=== PATIENT | male | born 1980 | race Two or more races ===

== ENCOUNTER → 2016-04-17 | Outpatient (CLI) | payer BC ==
--- NOTE | 2016-04-17 17:32 | PN ---
DATE OF SERVICE: 04/17/2016 This patient is a 35-year-old gentleman who has been followed in the sleep center for treatment of obstructive sleep apnea/hypopnea syndrome. We discussed the results of his diagnostic sleep study and CPAP titration with the patient in detail. At present he has a CPAP unit. I checked his CPAP machine. Pressure is 10.5 cm of water. Patient is using equipment 27 out of 30 nights, but only 13 nights for more than 4 hours, although average usage is 4.2 hours. Subsequently that means that he most of the night is using the machine very close to 4 hours. Sometimes patient takes the mask off during the night and does not feel very comfortable with that. But for several nights when he was able to sleep through the whole night with the machine, he felt better during the night and during the day. Leak from the mask is 13 L/minute, which is acceptable. Apnea-hypopnea index reading from the machine is only 1.2, which indicates that the machine works well and does normalize the patient's breathing. Sometimes patient has difficulties initiating sleep and difficulties in re-initiating sleep again after awakenings in the middle of the night. MEDICATIONS: Ativan, ranitidine. PHYSICAL EXAMINATION: Patient in no distress. VITAL SIGNS: BP 130/72, HR 82, RR 16. Weight 236, temperature 98.3. Oxygen saturation at room air 97%. HEENT: PERRLA, EOMI. LUNGS: Clear. HEART: S1, S2 regular. ABDOMEN: Soft, nontender. EXTREMITIES: No edema. IMPRESSION: 1. Obstructive sleep apnea/hypopnea syndrome, in mild range, controlled with CPAP at 10.5 cm of water. 2. Patient has some difficulties with the mask. 3. Patient has insomnia with difficulties initiating sleep. 4. History of social phobia. 5. Acid reflux. 6. Restriction of nasal breathing. PLAN: 1. I discussed with the patient stimulus control, paradoxical intention. Patient also uses worry time and not looking at the clock at night. 2. Sleep hygiene with regular time in bed for at least 7-1/2 hours. 3. No driving if feeling any sleepiness. 4. Prescription for all necessary CPAP supplies. Thank you very much for allowing me to participate in the management your patient. Sincerely, Osman Saucedo MD, PhD, FAASM. Diplomat of [place] [employer], Sleep Medicine Board by [place] [employer], [place] [employer]
== END | disposition home or self-care (01) ==

== ENCOUNTER → 2018-10-27 | Outpatient (CLI) | payer BC ==
[2018-10-27 12:40] LABS: Basophils % (A) 1 %; Eosinophils # (A) 0.1 k/uL (0-0.7); Eosinophils % (A) 3 %; HCT 41.1 % (39.0-53.0); HGB 13.9 gm/dL (13.0-17.5); Lymphocytes # (A) 1.4 k/uL (1.0-4.8); Lymphocytes % (A) 31 %; MCH 31.7 pg (25.0-35.0); MCHC 33.8 g/dL (31.0-37.0); Mean Platelet Volume 7.3; Monocytes # (A) 0.3 k/uL (0-1.0); Monocytes % (A) 7 %; Neutrophils # (A) 2.4 k/uL (1.3-7.7); Neutrophils % (A) 55 %; Platelet Count 175 k/uL (150-450); RBC 4.37 m/uL (4.30-5.90); RDW 14.7 % (11.5-15.5); WBC 4.3 k/uL (3.8-10.6)
== END | disposition home or self-care (01) ==
LOC: LABPAT 11:39
PROVIDERS: ATTEND Orthopaedic Surgery
DX: Z01.812 Encounter for preprocedural laboratory examination (principal); G56.03 Carpal tunnel syndrome, bilateral upper limbs
CPT/HCPCS: 36415; 80051; 85025

== ENCOUNTER 2018-11-05 08:57 | Day surgery (SDC) | payer BC ==
[2018-11-01 14:26] VITALS: BMI 25.7
--- NOTE | 2018-11-04 20:27 | HP ---
HISTORY AND PHYSICAL CHIEF COMPLAINT: Left hand pain and numbness. 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 He is having a difficult time with gripping and grasping. He notes numbness along with pain. He is having night symptoms. PAST MEDICAL HISTORY: Negative. CURRENT MEDICATIONS: None. ALLERGIES: HE DENIES DRUG ALLERGIES. FAMILY HISTORY: Significant for cancer. SOCIAL HISTORY: Significant for social alcohol use. REVIEW OF SYSTEMS: Sixteen-point review of systems otherwise reviewed and is noncontributory. PHYSICAL EXAMINATION: He is approximately 5 feet 11 inches tall, 188 pounds of mesomorphic habitus. HEENT exam is nonfocal. Neck is supple. He is nontender about the left shoulder and elbow. On examination of his left wrist, he has a positive Tinel's over the carpal canal. Abductor pollicis brevis strength is 5 minus over 5. There is overall significant thenar atrophy. EMG report from 10/19/2018 shows evidence of moderate left carpal tunnel syndrome. IMPRESSION: Left carpal tunnel syndrome, symptomatic. RECOMMENDATIONS: I talked to the patient at length regarding his condition along with treatment options. At this point he is quite symptomatic and opts to proceed with surgery. We will plan to proceed with left carpal tunnel release utilizing local anesthetic and IV sedation. MMARIADNEL / IJN: [id number] /
--- NOTE | 2018-11-04 21:27 | HP ---
HISTORY AND PHYSICAL CHIEF COMPLAINT: Right hand pain and numbness. 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 It has worsened recently. He has had a difficult time with gripping and grasping. He notes significant night symptoms. He has tried medications and bracing. PAST MEDICAL HISTORY: Negative. CURRENT MEDICATIONS: None. He denies drug allergies. FAMILY HISTORY: Significant for cancer. SOCIAL HISTORY: Significant for social alcohol use. REVIEW OF SYSTEMS: Sixteen point review of systems otherwise reviewed and is noncontributory. PHYSICAL EXAMINATION: On examination, the patient is approximately 5 foot 11, 188 pounds of mesomorphic habitus. HEENT exam is nonfocal. Neck is supple. He is nontender about the right shoulder and elbow. On examination of the right wrist, he has a positive Tinel's over the carpal canal. Abductor pollicis brevis strength is 4/5. He has no real thenar wasting. Light touch is grossly intact throughout the right digits. EMG report 10/19/2018 showed moderate bilateral carpal tunnel syndrome. IMPRESSION: Right carpal tunnel syndrome, symptomatic. RECOMMENDATIONS: I talked to the patient at length regarding his condition along with treatment options. At this point, he notes he is quite limited because of pain, numbness, and weakness. After thorough discussion he opts to proceed with surgery. We are going to proceed with right carpal tunnel release utilizing local anesthetic and IV sedation. We will likely perform that as an outpatient procedure. Risks and benefits were discussed at length in layman's terms. MMODL / IJN: [id number] /
[~2018-11-05 08:57] MED LIST: DEXAMETHASONE SOD PHOSPHATE 10 MG/ML 1 ML VIAL IV ONE; HYDROmorphone 0.5 MG/0.5 ML SYRINGE IVP PRN; LACTATED RINGERS 1,000 ML IV SCH; ONDANSETRON 4 MG/2 ML VIAL IVP ONE
[2018-11-05 09:12] VITALS: TEMP 97.7
[2018-11-05] MEDS ORDERED: LIDOCAINE 1% 20 ML VIAL (10MG/ML) FOR IV START INTRADERMA ONE (09:18)
[2018-11-05] MEDS ORDERED: fentaNYL (PF) 50 MCG/ML 2 ML AMP ONE (10:24)
[2018-11-05] MEDS ORDERED: PROPOFOL 10 MG/ML 20 ML VIAL IV ONE (10:24)
[2018-11-05] MEDS ORDERED: MIDAZOLAM 2 MG/2 ML VIAL ONE (10:24)
[2018-11-05] MEDS ORDERED: LIDOCAINE 1% INJ 10MG/ML (20 ML MDV) ONE (10:24)
[2018-11-05] MEDS ORDERED: BUPIVACAINE (PF) 0.25% 30 ML VIAL SQ ONE (10:28)
--- NOTE | 2018-11-05 10:56 | P.OP ---
Date of Procedure: 11/05/18 Preoperative Diagnosis: Right carpal tunnel syndromesymptomatic Postoperative Diagnosis: Same Procedure(s) Performed: Right carpal tunnel release Anesthesia: MAC, local Surgeon: Solomon Franco Estimated Blood Loss (ml): 2 Pathology: none sent Condition: stable Disposition: PACU Indications for Procedure: The patient's a 38-year-old [id number]-ikdpegov gentleman who presents with progressive right hand pain and numbness secondary to carpal tunnel syndrome despite conservative measures. A discussion of the risks and benefits of operative intervention versus continued conservative measures was made with patient. He opted to proceed with surgery. Operative risks to include infection, neurovascular injury, development of blood clots, possible incomplete resolution of symptoms, possible recurrence of symptoms and need for subsequent procedures was discussed. Informed consent was obtained. Operative Findings: As below Description of Procedure: The patient was brought to the operating room, and after induction of IV sedation the right upper extremity was prepped and draped in normal fashion. The proposed incision site was outlined skin marker in line with the radial aspect the fourth ray extending from the volar wrist crease distally 2-1/2 cm. One quarter percent plain Marcaine was injected into the proposed incision site. 9 mL was utilized. The tourniquet was inflated to 250 mmHg. The skin incision was then made. The skin was incised sharply. Subcutaneous tissues were divided sharply the superficial palmar fascia was identified and split in line with the skin incision. The transverse carpal ligament was identified and transected under direct visualization distally to level the palmar fat pad. Proximal was taken level of the volar wrist crease. A plane above and below the transverse carpal ligament was then bluntly developed with tenotomies. The confluence of the distal forearm fascia and the transverse carpal ligament was then transected under direct visualization proximally with the tines pointed in the ulnar direction. I felt this was adequate proximal release. Neural lysis was not performed. The wound was irrigated with normal saline. Electrocautery was used for hemostasis. The skin was reapproximated with simple 3-0 nylon sutures. A sterile dressing was applied. The tourniquet was deflated with less than 15 minutes total tourniquet time. Patient was awoken from sedation and transferred to the recovery room in good condition. Blood loss was estimated 2 mL. No complications were incurred. Sponge and needle counts were correct at the end the case.
[2018-11-05 11:33] VITALS: BP 114/64; PULSE 66; RESP 16
== END 2018-11-05 11:57 | disposition home or self-care (01) ==
LOC: OR 08:57
PROVIDERS: ATTEND Orthopaedic Surgery
DX: G56.01 Carpal tunnel syndrome, right upper limb (principal); K21.9 Gastro-esophageal reflux disease without esophagitis; Z79.899 Other long term (current) drug therapy; Z80.9 Family history of malignant neoplasm, unspecified
CPT/HCPCS: 64721; J2250; J1100; J0690; J2405; J2001; J3010; J2704

== ENCOUNTER 2018-11-26 08:46 | Day surgery (SDC) | payer BC ==
[2018-11-22 12:31] VITALS: BMI 25.7
--- NOTE | 2018-11-25 09:58 | HP ---
HISTORY AND PHYSICAL CHIEF COMPLAINT: Left hand pain and numbness. 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 It has worsened recently. He is having symptoms at night. He notes weakness and numbness. PAST MEDICAL HISTORY: Negative. PAST SURGICAL HISTORY: Significant for recent right carpal tunnel release. CURRENT MEDICATIONS: None. ALLERGIES: He denies drug allergies. FAMILY HISTORY: Significant for cancer. SOCIAL HISTORY: Significant for social alcohol use. REVIEW OF SYSTEMS: Sixteen-point review of systems otherwise reviewed and is noncontributory. PHYSICAL EXAMINATION: On examination, the patient is well-developed, well-nourished male approximately 5 feet 11 inches, 188 pounds of mesomorphic habitus. HEENT exam is nonfocal. Neck is supple. He is nontender about the left shoulder and elbow. On examination of his left wrist, he has a positive Tinel's over the carpal canal. Light touch appears grossly intact. Abductor pollicis brevis strength 5- over 5. There is no real thenar wasting. EMG report of left upper extremity 10/19/2018 by report shows moderate carpal tunnel syndrome. IMPRESSION: Left carpal tunnel syndrome-symptomatic. RECOMMENDATIONS: I talked to the patient at length regarding his condition and treatment options. At this point, he is quite symptomatic despite conservative measures and opts to proceed with surgery. We will plan to proceed with left carpal tunnel release utilizing local anesthetic and IV sedation. We will likely perform that as an outpatient procedure. MMODL / IJN: [id number] /
[~2018-11-26 08:46] MED LIST changes: +LIDOCAINE 1% 20 ML VIAL (10MG/ML) FOR IV START INTRADERMA PRN; +MIDAZOLAM 2 MG/2 ML VIAL IV PRN; +SCOPOLAMINE 1.5MG/72HR PATCH TRANSDERM ONE
[2018-11-26 09:22] VITALS: TEMP 98.3
[2018-11-26] MEDS: LACTATED RINGERS 1,000 ML IV ONE ×2 (09:30→10:02)
[2018-11-26] MEDS ORDERED: fentaNYL (PF) 50 MCG/ML 2 ML AMP ONE (10:00)
[2018-11-26] MEDS ORDERED: MIDAZOLAM 2 MG/2 ML VIAL ONE (10:00)
[2018-11-26] MEDS ORDERED: PROPOFOL 10 MG/ML 20 ML VIAL IV ONE (10:00)
[2018-11-26] MEDS ORDERED: LIDOCAINE 1% INJ 10MG/ML (20 ML MDV) ONE (10:00)
[2018-11-26] MEDS ORDERED: BUPIVACAINE (PF) 0.25% 30 ML VIAL SQ ONE (10:02)
--- NOTE | 2018-11-26 10:33 | P.OP ---
Date of Procedure: 11/26/18 Preoperative Diagnosis: Left carpal tunnel syndromesymptomatic Postoperative Diagnosis: Same Procedure(s) Performed: Left carpal tunnel release Anesthesia: MAC, local Surgeon: Solomon Franco Estimated Blood Loss (ml): 2 Pathology: none sent Condition: stable Disposition: PACU Indications for Procedure: The patient's a 38-year-old male who presents with progressive left hand pain and numbness secondary carpal tunnel syndrome despite conservative measures. A discussion of the risks and benefits of operative intervention versus continued conservative measures was made with patient. He opted to proceed with surgery. Operative risks to include infection, neurovascular injury, development of blood clots, possible incomplete resolution of symptoms, possible recurrence of symptoms and need for subsequent procedures was discussed. Informed consent was obtained. Operative Findings: As below Description of Procedure: The patient was brought to the operating room, and after induction of IV sedation the left upper extremity was prepped and draped in normal fashion. The proposed incision site was outlined skin marker in line with the radial aspect the fourth ray extending from the volar wrist crease distally 2-1/2 cm. One quarter percent plain Marcaine was injected into the proposed incision site. 9 mL was utilized. The tourniquet was inflated to 250 mmHg. The skin incision was then made. The skin was incised sharply. Subcutaneous tissues were divided sharply the superficial palmar fascia was identified and split in line with the skin incision. The transverse carpal ligament was identified and transected under direct visualization distally to level the palmar fat pad. Proximal was taken level of the volar wrist crease. A plane above and below the transverse carpal ligament was then bluntly developed with tenotomies. The confluence of the distal forearm fascia and the transverse carpal ligament was then transected under direct visualization proximally with the tines pointed in the ulnar direction. I felt this was adequate proximal release. Neural lysis was not performed. The wound was irrigated with normal saline. Electrocautery was used for hemostasis. The skin was reapproximated with simple 3-0 nylon sutures. A sterile dressing was applied. The tourniquet was deflated with less than 15 minutes total tourniquet time. Patient was awoken from sedation and transferred to the recovery room in good condition. Blood loss was estimated 1 mL. No complications were incurred. Sponge and needle counts were correct at the end the case.
[2018-11-26 10:59] VITALS: BP 132/75; PULSE 70; RESP 18
== END 2018-11-26 11:20 | disposition home or self-care (01) ==
LOC: OR 08:46
PROVIDERS: ATTEND Orthopaedic Surgery
DX: G56.02 Carpal tunnel syndrome, left upper limb (principal); Z80.9 Family history of malignant neoplasm, unspecified
CPT/HCPCS: 64721; J2250; J1100; J0690; J2405; J2001; J3010; J2704

== ENCOUNTER 2019-12-09 00:48 | Emergency (ER) | payer BC ==
[2019-12-09 00:59] VITALS: BP 131/83; PULSE 80; RESP 18; TEMP 97.9
--- NOTE | 2019-12-09 01:18 | ED ---
General Adult HPI - General Chief complaint: ENT Stated complaint: ENT Time Seen by Provider: 12/09/19 01:00 Source: patient, RN notes reviewed Mode of arrival: ambulatory Limitations: no limitations - History of Present Illness Initial comments: 39-year-old male presents to the emergency room for a chief complaint of bug in right ear. Patient reports he was outside when he suddenly felt a bug fly into his right ear. States he could feel it moving around. Patient reports that he killed it with mineral oil. He then attempted to flush his ear several times to dislodge the insect however was unsuccessful. Patient then presented to the emergency room. He denies any pain in the right ear at this time.Patient has no other complaints at this time including shortness of breath, chest pain, abdominal pain, nausea or vomiting, headache, or visual changes. - Related Data Home Medications Medication Instructions Recorded Confirmed Calcium Carbonate [Tums] 500 mg PO DIRECTED PRN 11/01/18 11/26/18 Multivitamins, Thera [Multivitamin 1 tab PO DAILY 11/01/18 11/26/18 (formulary)] Ranitidine HCl [Zantac] 150 mg PO BID PRN 11/01/18 11/26/18 Allergies Allergy/AdvReac Type Severity Reaction Status Date / Time No Known Allergies Allergy Verified 12/09/19 00:58 Review of Systems ROS Statement: Those systems with pertinent positive or pertinent negative responses have been documented in the HPI. ROS Other: All systems not noted in ROS Statement are negative. Past Medical History Past Medical History: No Reported History History of Any Multi-Drug Resistant Organisms: None Reported Past Surgical History: Orthopedic Surgery Past Psychological History: No Psychological Hx Reported Smoking Status: Never smoker Past Alcohol Use History: Rare Past Drug Use History: None Reported General Exam Limitations: no limitations General appearance: alert, in no apparent distress Head exam: Present: atraumatic, normocephalic, normal inspection Eye exam: Present: normal appearance, PERRL, EOMI. Absent: scleral icterus, conjunctival injection ENT exam: Present: TM's normal bilaterally, other (Patient does have a large insect noted in the right external auditory canal.). Absent: normal exam Neck exam: Present: normal inspection, full ROM. Absent: tenderness, meningismus Respiratory exam: Present: normal lung sounds bilaterally. Absent: respiratory distress, wheezes, rales, rhonchi, stridor Cardiovascular Exam: Present: regular rate, normal rhythm, normal heart sounds. Absent: systolic murmur, diastolic murmur, rubs, gallop, clicks Course Vital Signs 12/09/19 00:57 Temperature 97.9 F Pulse Rate 80 Respiratory 18 Rate Blood Pressure 131/83 O2 Sat by Pulse 99 Oximetry Procedures - Foreign Body Removal Ear Location: ear canal (R) Foreign Body Suspected: insect If Insect Suspected: ear canal inspected; intact TM, insect seen Foreign Body Removed: yes Foreign Body Removal Technique: forceps Tympanic Membrane Intact: Yes Patient Tolerated Procedure: well, no complications Complications: none Medical Decision Making - Medical Decision Making Insect was removed from external auditory canal followed by 2 separate detached legs. Tympanic membrane does appear intact after removal. Patient will return for any signs of infection. Disposition Clinical Impression: Ear foreign body Disposition: HOME SELF-CARE Condition: Good Instructions (If sedation given, give patient instructions): Ear Foreign Body (ED) Additional Instructions: If you have any worsening symptoms such as fevers or drainage from the ear return to the emergency room. Is patient prescribed a controlled substance at d/c from ED?: No Referrals: Maryann Bullard MD [REFERRING] - 1-2 days Time of Disposition: 01:18
== END 2019-12-09 01:28 | disposition home or self-care (01) ==
LOC: EC 00:48
DX: T16.1XXA Foreign body in right ear, initial encounter (principal); X58.XXXA Exposure to other specified factors, initial encounter
CPT/HCPCS: 69200; 99282

== ENCOUNTER 2020-07-04 14:33 | Emergency (ER) | payer BC ==
[2020-07-04 14:40] VITALS: RESP 18; TEMP 98.3
--- NOTE | 2020-07-04 15:49 | CT ---
EXAMINATION TYPE: CT brain cspine wo con DATE OF EXAM: 07/04/2020 COMPARISON: None HISTORY: head trauma from falling lockers 6 weeks ago, continuous headache, dizziness, neck pain sinc e incident CT DLP: 1404.[address] Brain: Unenhanced CT of the brain was performed. Large area of vasogenic edema noted within the left frontal lobe. Suspect underlying mass. MRI of the brain is recommended. There is midline shift from left to right of 1.5 cm. There is subfalcine herni ation. No additional areas of abnormal attenuation are seen. No evidence for intracranial hemorrhage. Bony calvarium is intact. If symptoms persist consider MRI. Osseous calvarium is intact. He. He IMPRESSION: 1.Large area of vasogenic edema left frontal lobe. I suspect underlying mass 2. left to right shift with subfalcine herniation. CT Cervical Spine: Unenhanced CT of the cervical spine was performed with bone and soft tissue window settings submitted . Coronal and sagittal reconstruction is obtained. There is normal alignment and prevertebral soft tissues. I do not see evidence for fracture or sublu xation. No significant degenerative changes are present. The lung apices are clear. IMPRESSION: No evidence for acute fracture or subluxation of the cervical spine. ER Notified via telephone at the time of exam completion of the aforementioned findings.
[2020-07-04] MEDS ORDERED: DEXAMETHASONE SOD PHOSPHATE 10 MG/ML 1 ML VIAL IV STA (15:59)
[2020-07-04 16:10] VITALS: BP 136/75; PULSE 63
--- NOTE | 2020-07-04 16:13 | ED ---
Headache HPI - General Chief Complaint: Headache Stated Complaint: Headache Time Seen by Provider: 07/04/20 14:50 Mode of arrival: ambulatory Limitations: no limitations - History of Present Illness Initial Comments: The patient is a 39-year-old male, previously healthy, who presents the emergency room with reported headache and visual changes for the past 8 weeks. The patient reports that he was in his barn building lockers when he was mcfp up a ladder and fell off. Reports that he fell backwards and hit the left side of his head. He was not unconscious for an unknown period of time. He reports that when he woke up he was having a headache. He has had persistent delay in his speech and some aphasia. He followed up with his primary care doctor approximate 2 weeks after his symptoms. Primary care doctor placed him on 10 days for the prednisone. He did report that his symptoms improved somewhat however they have now gotten progressively worse. Reports to a moderate headache at daily. He has been taking Motrin and Tylenol however headache never goes away. He has an MRI scheduled for July 21 however due to the continuation and worsening of his symptoms he came into the emergency room today. States that his left side feels weaker. Denies any difficulties with ambulation. Reports to visual changes in his left eye. No fevers or chills. Denies any neck pain. No other alleviating, precipitating or modifying factors - Related Data Home Medications Medication Instructions Recorded Confirmed Dextroamphetamine/Amphetamine 15 mg PO DAILY 07/04/20 07/04/20 [Adderall] Lisdexamfetamine Dimesylate 70 mg PO DAILY 07/04/20 07/04/20 [Vyvanse] Meclizine [Antivert] 12.5 mg PO Q6H PRN 07/04/20 07/04/20 Zantac 75mg 75 mg PO DAILY 07/04/20 07/04/20 Allergies Allergy/AdvReac Type Severity Reaction Status Date / Time No Known Allergies Allergy Verified 07/04/20 15:40 Review of Systems ROS Statement: Those systems with pertinent positive or pertinent negative responses have been documented in the HPI. ROS Other: All systems not noted in ROS Statement are negative. Past Medical History Past Medical History: No Reported History History of Any Multi-Drug Resistant Organisms: None Reported Past Surgical History: Orthopedic Surgery Additional Past Surgical History / Comment(s): lt hand Past Psychological History: No Psychological Hx Reported Smoking Status: Never smoker Past Alcohol Use History: Rare Past Drug Use History: None Reported General Exam Limitations: no limitations General appearance: alert, in no apparent distress Head exam: Present: atraumatic, normocephalic, normal inspection Eye exam: Present: normal appearance, PERRL, EOMI. Absent: scleral icterus, conjunctival injection, periorbital swelling ENT exam: Present: normal exam, mucous membranes moist Neck exam: Present: normal inspection. Absent: tenderness, meningismus, lymphadenopathy Respiratory exam: Present: normal lung sounds bilaterally. Absent: respiratory distress, wheezes, rales, rhonchi, stridor Cardiovascular Exam: Present: regular rate, normal rhythm, normal heart sounds. Absent: systolic murmur, diastolic murmur, rubs, gallop, clicks GI/Abdominal exam: Present: soft, normal bowel sounds. Absent: distended, tenderness, guarding, rebound, rigid Extremities exam: Present: normal inspection, full ROM, normal capillary refill, other (4/5 strength left hand). Absent: tenderness, pedal edema, joint swelling, calf tenderness Back exam: Present: normal inspection Neurological exam: Present: alert, oriented X3, CN II-XII intact, other (delayed speech. No dysarthria. Mild expressive aphasia. ) Psychiatric exam: Present: normal affect, normal mood Skin exam: Present: warm, dry, intact, normal color. Absent: rash Course Vital Signs 07/04/20 07/04/20 14:34 16:10 Temperature 98.3 F Pulse Rate 66 63 Respiratory 18 18 Rate Blood Pressure 138/87 136/75 O2 Sat by Pulse 99 100 Oximetry - Reevaluation(s) Reevaluation #1: Dr. Juan spoke with radiologist regarding read 07/04/20 15:49 Reevaluation #2: Spoke with patient regarding diagnosis 07/04/20 15:55 Reevaluation #3: Spoke with Devin Soliman - no ICU beds 07/04/20 16:03 Spoke with [facility] - awaiting capacity to accept patient 07/04/20 16:08 [facility] - no ICU availability 07/04/20 16:12 [facility]in Santiago - no ICU availability 07/04/20 16:[address] [facility] 07/04/20 16:29 [facility] - no ICU beds 07/04/20 16:36 Reevaluation #4: [facility] accepts patient 07/04/20 16:44 Reevaluation #5: Speaking with Neurosurgery at [facility] - [phone]. No further recs 07/04/20 16:45 Medical Decision Making - Medical Decision Making Upon arrival, the patient is placed in room 6. A thorough history and physical exam is performed. Patient is immediately sent over for CT which demonstrates large area of vasogenic edema of the left frontal lobe. Suspected underlying mass. Left to right shift with subfalcine herniation. No evidence of fracture of the cervical spine. The radiologist does discuss these results with Dr. Juan. I discussed the results with the patient and recommended immediate transfer for MRI. IV was established the patient was given 10 mg Decadron. Labs were drawn. Currently attempting transferred outside facility with neurosurgery capabilities - Lab Data Result diagrams: 07/04/20 16:06 07/04/20 16:06 Lab Results 07/04/20 07/04/20 Range/Units 16:06 16:06 WBC 10.0 (3.8-10.6) k/uL RBC 4.89 (4.30-5.90) m/uL Hgb 15.9 (13.0-17.5) gm/dL Hct 45.0 (39.0-53.0) % MCV 92.0 (80.0-100.0) fL MCH 32.6 (25.0-35.0) pg MCHC 35.5 (31.0-37.0) g/dL RDW 12.8 (11.5-15.5) % Plt Count 182 (150-450) k/uL MPV 7.0 Neutrophils % 84 % Lymphocytes % 10 % Monocytes % 5 % Eosinophils % 1 % Basophils % 0 % Neutrophils # 8.4 H (1.3-7.7) k/uL Lymphocytes # 1.0 (1.0-4.8) k/uL Monocytes # 0.5 (0-1.0) k/uL Eosinophils # 0.1 (0-0.7) k/uL Basophils # 0.0 (0-0.2) k/uL Sodium 137 (137-145) mmol/L Potassium 4.3 (3.5-5.1) mmol/L Chloride 99 (98-107) mmol/L Carbon Dioxide 30 (22-30) mmol/L Anion Gap 8 mmol/L BUN 15 (9-20) mg/dL Creatinine 0.94 (0.66-1.25) mg/dL Est GFR (CKD-EPI)AfAm >90 (>60 ml/min/1.73 sqM) Est GFR (CKD-EPI)NonAf >90 (>60 ml/min/1.73 sqM) Glucose 96 (74-99) mg/dL Calcium 10.0 (8.4-10.2) mg/dL Total Bilirubin 1.2 (0.2-1.3) mg/dL AST 19 (17-59) U/L ALT 19 (4-49) U/L Alkaline Phosphatase 55 (38-126) U/L Total Protein 7.5 (6.3-8.2) g/dL Albumin 4.8 (3.5-5.0) g/dL Disposition Clinical Impression: Fall, Head trauma, Vasogenic edema Disposition: OTHER INSTITUTION NOT DEFINED Condition: Serious Is patient prescribed a controlled substance at d/c from ED?: No Referrals: William Barroso DO [Primary Care Provider] - 1-2 days Time of Disposition: 16:12 - Out of Hospital Transfer - Req. Specs Out of Hospital Transfer - Requested Specifics: Other Emergency Center ([facility])
[2020-07-04 16:17] LABS: Basophils % (A) 0 %; Eosinophils # (A) 0.1 k/uL (0-0.7); Eosinophils % (A) 1 %; HGB 15.9 gm/dL (13.0-17.5); Lymphocytes % (A) 10 %; MCH 32.6 pg (25.0-35.0); MCHC 35.5 g/dL (31.0-37.0); Monocytes # (A) 0.5 k/uL (0-1.0); Monocytes % (A) 5 %; Neutrophils # (A) 8.4 k/uL (1.3-7.7); Neutrophils % (A) 84 %; Platelet Count 182 k/uL (150-450); RBC 4.89 m/uL (4.30-5.90); RDW 12.8 % (11.5-15.5)
[2020-07-04 16:24] LABS: ALT 19 U/L (4-49); AST 19 U/L (17-59); African American GFR (CKD) >90 (>60 ml/min/1.73 sqM); Albumin 4.8 g/dL (3.5-5.0); Alkaline Phosphatase 55 U/L (38-126); Anion Gap 8 mmol/L; Blood Urea Nitrogen 15 mg/dL (9-20); Carbon Dioxide 30 mmol/L (22-30); Chloride 99 mmol/L (98-107); Glucose 96 mg/dL (74-99); Non-African American GFR(CKD) >90 (>60 ml/min/1.73 sqM); Potassium 4.3 mmol/L (3.5-5.1); Sodium 137 mmol/L (137-145); Total Bilirubin 1.2 mg/dL (0.2-1.3); Total Protein 7.5 g/dL (6.3-8.2)
== END 2020-07-04 17:12 | disposition other institution (70) ==
LOC: EC 14:33
DX: S06.1X9A Traumatic cerebral edema with loss of consciousness of unspecified duration, initial encounter (principal); Z20.822 Contact with and (suspected) exposure to COVID-19; W11.XXXA Fall on and from ladder, initial encounter
CPT/HCPCS: 36415; 80053; 85025; 87635; 72125; 70450; 99285; 96374; J1100

== ENCOUNTER 2023-07-11 09:55 | Emergency (ER) | payer BC ==
[2023-07-11] MEDS ORDERED: levETIRAcetam IV 1,500 MG in SODIUM CHLORIDE 0.9% 250 ML IVPB ONE (10:01)
--- NOTE | 2023-07-11 10:03 | ED ---
General Adult HPI - General Chief complaint: Seizure Stated complaint: Seizure Time Seen by Provider: 07/11/23 09:55 Source: patient, EMS, RN notes reviewed, old records reviewed Mode of arrival: EMS Limitations: no limitations - History of Present Illness Initial comments: This is a 43-year-old male who was diagnosed with glioblastoma 3 years ago. Pat ient states he has had a resection years ago. Patient states he has also had multiple CT scans and MRIs the last MRI was 2 months ago and showed no new tumors. Patient does have a WEATHERIZATION SPECIALIST shunt in place. Patient also was on Keppra. Patient states today had a seizure that was the first seizure he had in a year. Patient denies any prodrome or any feeling of being sick in any way prior to the seizure. Patient states since the seizure he has been up and walking around without problem and has no symptoms at this time. Patient denies any headache patient denies numbness weakness. Patient denies any confusion. - Related Data Home Medications Medication Instructions Recorded Confirmed dexAMETHasone 2 mg PO DAILY 07/17/21 07/17/21 Previous Rx's Medication Instructions Recorded levETIRAcetam [Keppra] 750 mg PO Q12HR #60 tab 07/18/21 Allergies Allergy/AdvReac Type Severity Reaction Status Date / Time No Known Allergies Allergy Verified 07/11/23 10:00 Review of Systems ROS Statement: Those systems with pertinent positive or pertinent negative responses have been documented in the HPI. ROS Other: All systems not noted in ROS Statement are negative. 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 brain sx x 5 Past Psychological History: No Psychological Hx Reported Smoking Status: Never smoker Past Alcohol Use History: Rare Past Drug Use History: None Reported General Exam - General Exam Comments Initial Comments: GENERAL: Patient is well-developed and well-nourished. Patient is nontoxic and well- hydrated and is in no acute distress. ENT: Neck is soft and supple. No significant lymphadenopathy is noted. Oropharynx is clear. Moist mucous membranes. Neck has full range of motion without eliciting any pain. [place] for the shunt is fluctuant EYES: The sclera were anicteric and conjunctiva were pink and moist. Extraocular movements were intact and pupils were equal round and reactive to light. Eyelids were unremarkable. PULMONARY: Unlabored respirations. Good breath sounds bilaterally. No audible rales rhonchi or wheezing was noted. CARDIOVASCULAR: There is a regular rate and rhythm without any murmurs gallops or rubs. ABDOMEN: Soft and nontender with normal bowel sounds. SKIN: Skin is clear with no lesions or rashes and otherwise unremarkable. NEUROLOGIC: Patient is alert and oriented x3. Cranial nerves II through XII are grossly intact. Motor and sensory are also intact. Normal speech, volume and content. Symmetrical smile. MUSCULOSKELETAL: Normal extremities with adequate strength and full range of motion. No lower extremity swelling or edema. No calf tenderness. LYMPHATICS: No significant lymphadenopathy is noted PSYCHIATRIC: Normal psychiatric evaluation. Limitations: no limitations Course Vital Signs 07/11/23 09:56 Temperature 98.4 F Pulse Rate 89 Respiratory 16 Rate Blood Pressure 142/100 O2 Sat by Pulse 100 Oximetry Medical Decision Making - Medical Decision Making EKG is interpreted by myself. EKG shows a sinus rhythm at 80 bpm parable 220 QRS is 96 QT interval 364 QTc is 400. Patient's EKG shows no ST segment ovation or depression Was pt. sent in by a medical professional or institution (, PA, GEAR HOBBER, urgent care, hospital, or senior care...) When possible be specific @ -No Did you speak to anyone other than the patient for history (EMS, parent, family, police, friend...)? What history was obtained from this source @ -No Did you review nursing and triage notes (agree or disagree)? Why? @ -I reviewed and agree with nursing and triage notes Were old charts reviewed (outside hosp., previous admission, EMS record, old EKG, old radiological studies, urgent care reports/EKG's, senior care records)? Report findings @ -No old charts were reviewed Differential Diagnosis (chest pain, altered mental status, abdominal pain women, abdominal pain men, vaginal bleeding, weakness, fever, dyspnea, syncope, head ache, dizziness, GI bleed, back pain, seizure, CVA, palpatations, mental health, musculoskeletal)? @ -Differential Seizure: Recurrent seizure disorder, febrile seizure, alcohol withdrawal, stimulants, meningitis, encephalitis, intercranial hemorrhage, intracranial tumor, stroke, eclampsia, thyrotoxicosis, hypocalcemia, hyponatremia, hypernatremia, hypomagnesemia, psychogenic, this is not meant to be an all-inclusive list. EKG interpreted by me (3pts min.). @ -As above X-rays interpreted by me (1pt min.). @ -None done CT interpreted by me (1pt min.). @ -CT of the brain shows no acute abnormality U/S interpreted by me (1pt. min.). @ -None done What testing was considered but not performed or refused? (CT, X-rays, U/S, labs)? Why? @ -None What meds were considered but not given or refused? Why? @ -None Did you discuss the management of the patient with other professionals (professionals i.e. , PA, GEAR HOBBER, lab, RT, psych nurse, medical social worker, airline transport pilot, teacher, ground defence officer, catalytic case operator)? Give summary @ -No Was smoking cessation discussed for >3mins.? @ -No Was critical care preformed (if so, how long)? @ -No Were there social determinants of health that impacted care today? How? (H omelessness, low income, unemployed, alcoholism, drug addiction, transportation, low edu. Level, literacy, decrease access to med. care, mcfp, rehab)? @ -No Was there de-escalation of care discussed even if they declined (Discuss DNR or withdrawal of care, Hospice)? DNR status @ -No What co-morbidities impacted this encounter? (DM, HTN, Smoking, COPD, CAD, Cancer, CVA, ARF, Chemo, Hep., AIDS, mental health diagnosis, sleep apnea, morbid obesity)? @ -None Was patient admitted / discharged? Hospital course, mention meds given and route, prescriptions, significant lab abnormalities, going to OR and other pertinent info. @ -Patient CT showed no acute abnormality. Patient had no symptoms before or after the seizure. Patient was given 1500 mg of Keppra while in the emergency department. Patient states he will follow-up with his physician on Thursday. Undiagnosed new problem with uncertain prognosis? @ -No Drug Therapy requiring intensive monitoring for toxicity (Heparin, Nitro, Insulin, Cardizem)? @ -No Were any procedures done? @ -No Diagnosis/symptom? @ -Seizure Acute, or Chronic, or Acute on Chronic? @ -Acute Uncomplicated (without systemic symptoms) or Complicated (systemic symptoms)? @ -Complicated Side effects of treatment? @ -No Exacerbation, Progression, or Severe Exacerbation? @ -No Poses a threat to life or bodily function? How? (Chest pain, [place], MD, pneumonia, PE, COPD, DKA, ARF, appy, cholecystitis, CVA, Diverticulitis, Homicidal, Suicidal, threat to staff... and all critical care pts) @ -No - Lab Data Result diagrams: 07/11/23 10:06 07/11/23 10:06 Lab Results 07/11/23 07/11/23 Range/Units 10:06 10:06 WBC 4.6 (3.8-10.6) k/uL RBC 4.60 (4.30-5.90) m/uL Hgb 15.5 (13.0-17.5) gm/dL Hct 42.1 (39.0-53.0) % MCV 91.6 (80.0-100.0) fL MCH 33.7 (25.0-35.0) pg MCHC 36.8 (31.0-37.0) g/dL RDW 13.0 (11.5-15.5) % Plt Count 149 L (150-450) k/uL MPV 8.3 Neutrophils % 74 % Lymphocytes % 18 % Monocytes % 4 % Eosinophils % 2 % Basophils % 0 % Neutrophils # 3.4 (1.3-7.7) k/uL Lymphocytes # 0.8 L (1.0-4.8) k/uL Monocytes # 0.2 (0-1.0) k/uL Eosinophils # 0.1 (0-0.7) k/uL Basophils # 0.0 (0-0.2) k/uL Sodium 140 (137-145) mmol/L Potassium 4.1 (3.5-5.1) mmol/L Chloride 109 H (98-107) mmol/L Carbon Dioxide 17 L (22-30) mmol/L Anion Gap 14 mmol/L BUN 12 (9-20) mg/dL Creatinine 1.07 (0.66-1.25) mg/dL Est GFR (CKD-EPI)AfAm >90 (>60 ml/min/1.73 sqM) Est GFR (CKD-EPI)NonAf 85 (>60 ml/min/1.73 sqM) Glucose 93 (74-99) mg/dL Calcium 9.7 (8.4-10.2) mg/dL Total Bilirubin 0.9 (0.2-1.3) mg/dL AST 26 (17-59) U/L ALT 23 (4-49) U/L Alkaline Phosphatase 65 (38-126) U/L Total Protein 6.8 (6.3-8.2) g/dL Albumin 4.5 (3.5-5.0) g/dL Disposition Clinical Impression: Generalized seizure Disposition: HOME SELF-CARE Instructions (If sedation given, give patient instructions): Seizure/Epilepsy Discharge Instructions & Follow-Up Is patient prescribed a controlled substance at d/c from ED?: No Referrals: None,Stated [REFERRING] - 1-2 days Time of Disposition: 11:13
[2023-07-11] MEDS: levETIRAcetam IV 500 MG/5 ML VIAL IVP STA (10:07)
[2023-07-11 10:18] LABS: Basophils % (A) 0 %; Eosinophils # (A) 0.1 k/uL (0-0.7); Eosinophils % (A) 2 %; HCT 42.1 % (39.0-53.0); HGB 15.5 gm/dL (13.0-17.5); Lymphocytes # (A) 0.8 k/uL (1.0-4.8); Lymphocytes % (A) 18 %; MCH 33.7 pg (25.0-35.0); MCHC 36.8 g/dL (31.0-37.0); MCV 91.6 fL (80.0-100.0); Mean Platelet Volume 8.3; Monocytes # (A) 0.2 k/uL (0-1.0); Monocytes % (A) 4 %; Neutrophils # (A) 3.4 k/uL (1.3-7.7); Neutrophils % (A) 74 %; Platelet Count 149 k/uL (150-450); WBC 4.6 k/uL (3.8-10.6)
[2023-07-11 10:44] LABS: ALT 23 U/L (4-49); AST 26 U/L (17-59); African American GFR (CKD) >90 (>60 ml/min/1.73 sqM); Albumin 4.5 g/dL (3.5-5.0); Alkaline Phosphatase 65 U/L (38-126); Anion Gap 14 mmol/L; Blood Urea Nitrogen 12 mg/dL (9-20); Calcium 9.7 mg/dL (8.4-10.2); Carbon Dioxide 17 mmol/L (22-30); Chloride 109 mmol/L (98-107); Glucose 93 mg/dL (74-99); Non-African American GFR(CKD) 85 (>60 ml/min/1.73 sqM); Potassium 4.1 mmol/L (3.5-5.1); Sodium 140 mmol/L (137-145); Total Bilirubin 0.9 mg/dL (0.2-1.3); Total Protein 6.8 g/dL (6.3-8.2)
--- NOTE | 2023-07-11 10:50 | CT ---
EXAMINATION TYPE: CT brain wo con DATE OF EXAM: 07/11/2023 COMPARISON: 05/15/2022 HISTORY: Seizure activity. Pt is taking meds, hx of gliosarcoma, tumor removal, shunt. CT DLP: 1197.[address] of the brain was performed. Left frontal postoperative craniotomy noted with postoperative encephalomalacia and chronic subdural hygroma. Left subdural chronic collection is slightly more prominent than on prior study with maximal thickness at this time 1.1 cm and previously of 8 mm. The collection also extends further posteriorl y. No midline shift. No new mass is seen. No evidence for edema. Right frontal shunt catheter with it s distal tip in the right frontal horn. No evidence of hydrocephalus. If symptoms persist consider MR I as clinically warranted. IMPRESSION: 1. No acute intracranial process is seen at this time. 2. Left-sided subdural hygromas slightly larger in size however there is no evidence for midline shif t.
[2023-07-11 11:31] VITALS: BP 124/75; PULSE 70; RESP 18; TEMP 98
== END 2023-07-11 11:26 | disposition home or self-care (01) ==
LOC: EC 09:55
DX: G40.409 Other generalized epilepsy and epileptic syndromes, not intractable, without status epilepticus (principal)
CPT/HCPCS: 36415; 93005; 80053; 80177; 85025; 70450; 99285; 96374; J1953

== ENCOUNTER 2023-12-23 11:38 | Inpatient (IN) | payer BC ==
[2023-12-23 12:08] LABS: Basophils % (A) 0 %; Eosinophils # (A) 0.1 k/uL (0-0.7); Eosinophils % (A) 0 %; HCT 52.2 % (39.0-53.0); HGB 17.8 gm/dL (13.0-17.5); Lymphocytes # (A) 2.3 k/uL (1.0-4.8); Lymphocytes % (A) 14 %; MCH 31.7 pg (25.0-35.0); MCHC 34.1 g/dL (31.0-37.0); Mean Platelet Volume 7.5; Monocytes # (A) 0.8 k/uL (0-1.0); Monocytes % (A) 5 %; Neutrophils # (A) 12.4 k/uL (1.3-7.7); Neutrophils % (A) 79 %; Platelet Count 312 k/uL (150-450); RBC 5.61 m/uL (4.30-5.90); RDW 12.7 % (11.5-15.5); WBC 15.7 k/uL (3.8-10.6)
--- NOTE | 2023-12-23 12:11 | ED ---
Nausea/Vomiting/Diarrhea HPI - General Chief complaint: Nausea/Vomiting/Diarrhea Stated complaint: Vomiting Time Seen by Provider: 12/23/23 11:40 Source: patient, RN notes reviewed Mode of arrival: wheelchair Limitations: no limitations - History of Present Illness Initial comments: This is a 43-year-old male who presents to the emergency department for nausea and vomiting. He states that it started yesterday. He has cramping and pain in his hands, which he states has never happened before. Reports generalized associated abdominal pain, but is not able to localize it to any specific area. He has Zofran and Compazine at home, but has been unable to keep them down. Patient has a history of glioblastoma and follows with the [facility]. He was diagnosed over 3 years ago. He states that he is doing well and his last MRI was clear. Not currently receiving any treatment at this time and is just being monitored. He is very concerned that he has a history of seizures and has not been able to keep down his Keppra due to the vomiting. MD complaint: nausea, vomiting, abdominal pain - Related Data Home Medications Medication Instructions Recorded Confirmed levETIRAcetam [Keppra] 2,000 mg PO Q12HR 12/23/23 12/23/23 Allergies Allergy/AdvReac Type Severity Reaction Status Date / Time No Known Allergies Allergy Verified 12/23/23 13:18 Review of Systems ROS Statement: Those systems with pertinent positive or pertinent negative responses have been documented in the HPI. ROS Other: All systems not noted in ROS Statement are negative. 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 brain sx x 5 Past Psychological History: No Psychological Hx Reported Smoking Status: Never smoker Past Alcohol Use History: Rare Past Drug Use History: None Reported General Exam - General Exam Comments Initial Comments: Visual Physical Exam Vital signs reviewed General: Well-appearing, nontoxic, no acute distress. Head: Normocephalic, atraumatic Eyes: PERRLA, EOMI ENT: Airway patent Chest: Nonlabored breathing Skin: No visual rash, normal skin tone Neuro: Alert and oriented 3 Musculoskeletal: No gross abnormalities Limitations: no limitations General appearance: alert, in distress Head exam: Present: atraumatic, normocephalic, normal inspection Respiratory exam: Present: normal lung sounds bilaterally. Absent: respiratory distress, wheezes, rales, rhonchi, stridor Cardiovascular Exam: Present: regular rate, normal rhythm, normal heart sounds. Absent: systolic murmur, diastolic murmur, rubs, gallop, clicks GI/Abdominal exam: Present: soft, tenderness (diffuse), normal bowel sounds. Absent: distended Neurological exam: Present: alert, oriented X3, CN II-XII intact Psychiatric exam: Present: normal affect, normal mood Skin exam: Present: warm, dry, intact, normal color. Absent: rash Course Vital Signs 12/23/23 12/23/23 12/23/23 11:39 13:19 16:00 Temperature 97.6 F 98.2 F Pulse Rate 68 62 93 Respiratory 26 H 23 22 Rate Blood Pressure 115/49 134/91 O2 Sat by Pulse 99 100 99 Oximetry 12/23/23 16:04 Temperature Pulse Rate Respiratory Rate Blood Pressure 117/77 O2 Sat by Pulse Oximetry Medical Decision Making - Medical Decision Making This is a 43 year old male who presents to the emergency department for nausea and vomiting. Was pt. sent in by a medical professional or institution? @ -No Did you speak to anyone other than the patient for history? @ -No Did you review nursing and triage notes? @ -Yes, and I agree, it is accurate with regards to the patient's symptoms. Were old charts reviewed? @ -No Differential Diagnosis? @ -Differential Nausea and Vomiting: Gastroenteritis, cholecystitis, appendicitis, pancreatitis, migraine, benign positional vertigo, food borne illness, pyelonephritis, irritable bowel syndrome, influenza, Covid, GERD, incarcerated hernia, intestinal obstruction, this is not meant to be an all-inclusive list. EKG interpreted by me (3pts min.)? @ -EKG interpreted by me demonstrating the following: Sinus tachycardia. Ventricular rate 143 bpm, IL interval 125 ms, QRS duration 102 ms, QTc 396 ms. X-rays interpreted by me (1pt min.)? @ -Not obtained CT interpreted by me (1pt min.)? @ -CT scan of the abdomen and pelvis obtained. My interpretation identifies no dilation of the bowel loops. U/S interpreted by me (1pt. min.)? @ -Not obtained What testing was considered but not performed? (CT, X-rays, U/S, labs)? Why? @ -None What meds were considered but not given? Why? @ -None Did you discuss the management of the patient with other professionals? @ -Yes, Dr. Dao, who accepts the patient for admission Did you reconcile home meds? @ -No Was smoking cessation discussed for >3mins.? @ -No Was critical care preformed (if so, how long)? @ -No Were there social determinants of health that impacted care today? How? (Homelessness, low income, unemployed, alcoholism, drug addiction, transportation, low edu. Level, literacy, decrease access to med. care, senior living, rehab)? @ -No Was there de-escalation of care discussed even if they declined? (Discuss DNR or withdrawal of care, Hospice)? @ -No What co-morbidities impacted this encounter? (DM, HTN, Smoking, COPD, CAD, Cancer, CVA, Hep., AIDS, mental health diagnosis, sleep apnea, morbid obesity)? @ -Glioblastoma Was patient admitted / discharged? @ -Admitted. Lab work demonstrates leukocytosis with a white blood cell count of 15.7. Lactic acid elevated at 4.4. He also has fairly significant hypopho sphatemia with a phosphate of 0.7. CT scan of the abdomen and pelvis reveals mild diffuse gastric wall thickening that may be due to nondistention or underlying gastritis. He has a borderline liver size and mild pelvic free fluid likely from normal shunting of CSF. Findings reviewed with the patient. He was initially given 2 L of IV fluids and started on the phosphate replacement protocol with 60 mmol of sodium phosphate. He is currently unable to tolerate his oral Keppra and was started on the same dose, 2 g of Keppra IVPB twice daily. Patient admitted to medicine for hypophosphatemia, lactic acidosis, and nausea/vomiting. Case discussed with ED attending Dr. Nobles. Undiagnosed new problem with uncertain prognosis? @ -None Drug Therapy requiring intensive monitoring for toxicity (Heparin, Nitro, Insulin, Cardizem)? @ -None Were any procedures done? @ -None Diagnosis/symptom? @ -Hypophosphatemia, lactic acidosis, nausea and vomiting Acute, or Chronic, or Acute on Chronic? @ -Acute Uncomplicated (without systemic symptoms) or Complicated (systemic symptoms)? @ -Complicated Side effects of treatment? @ -None Exacerbation, Progression, or Severe Exacerbation] @ -Not applicable Poses a threat to life or bodily function? @ -Yes, if untreated the electrolyte abnormalities can lead to further complications and - Lab Data Result diagrams: 12/23/23 11:47 12/23/23 11:47 Lab Results 12/23/23 12/23/23 12/23/23 Range/Units 11:47 11:47 11:47 WBC 15.7 H (3.8-10.6) k/uL RBC 5.61 (4.30-5.90) m/uL Hgb 17.8 H (13.0-17.5) gm/dL Hct 52.2 (39.0-53.0) % MCV 93.0 (80.0-100.0) fL MCH 31.7 (25.0-35.0) pg MCHC 34.1 (31.0-37.0) g/dL RDW 12.7 (11.5-15.5) % Plt Count 312 (150-450) k/uL MPV 7.5 Neutrophils % 79 % Lymphocytes % 14 % Monocytes % 5 % Eosinophils % 0 % Basophils % 0 % Neutrophils # 12.4 H (1.3-7.7) k/uL Lymphocytes # 2.3 (1.0-4.8) k/uL Monocytes # 0.8 (0-1.0) k/uL Eosinophils # 0.1 (0-0.7) k/uL Basophils # 0.0 (0-0.2) k/uL Sodium 135 L (137-145) mmol/L Potassium 3.6 (3.5-5.1) mmol/L Chloride 92 L (98-107) mmol/L Carbon Dioxide 22 (22-30) mmol/L Anion Gap 21 mmol/L BUN 19 (9-20) mg/dL Creatinine 1.24 (0.66-1.25) mg/dL Est GFR (CKD-EPI)AfAm 82 (>60 ml/min/1.73 sqM) Est GFR (CKD-EPI)NonAf 71 (>60 ml/min/1.73 sqM) Glucose 141 H (74-99) mg/dL Lactic Ac Sepsis Rflx Plasma Lactic Acid Celestine 4.4 H* (0.7-2.0) mmol/L Calcium 10.8 H (8.4-10.2) mg/dL Phosphorus 0.7 L* (2.5-4.5) mg/dL Magnesium 2.0 (1.6-2.3) mg/dL Total Bilirubin 2.5 H (0.2-1.3) mg/dL AST 40 (17-59) U/L ALT 35 (4-49) U/L Alkaline Phosphatase 83 (38-126) U/L Total Protein 8.7 H (6.3-8.2) g/dL Albumin 5.7 H (3.5-5.0) g/dL Amylase (30-110) U/L Lipase (23-300) U/L 12/23/23 12/23/23 Range/Units 11:47 12:31 WBC (3.8-10.6) k/uL RBC (4.30-5.90) m/uL Hgb (13.0-17.5) gm/dL Hct (39.0-53.0) % MCV (80.0-100.0) fL MCH (25.0-35.0) pg MCHC (31.0-37.0) g/dL RDW (11.5-15.5) % Plt Count (150-450) k/uL MPV Neutrophils % % Lymphocytes % % Monocytes % % Eosinophils % % Basophils % % Neutrophils # (1.3-7.7) k/uL Lymphocytes # (1.0-4.8) k/uL Monocytes # (0-1.0) k/uL Eosinophils # (0-0.7) k/uL Basophils # (0-0.2) k/uL Sodium (137-145) mmol/L Potassium (3.5-5.1) mmol/L Chloride (98-107) mmol/L Carbon Dioxide (22-30) mmol/L Anion Gap mmol/L BUN (9-20) mg/dL Creatinine (0.66-1.25) mg/dL Est GFR (CKD-EPI)AfAm (>60 ml/min/1.73 sqM) Est GFR (CKD-EPI)NonAf (>60 ml/min/1.73 sqM) Glucose (74-99) mg/dL Lactic Ac Sepsis Rflx Y Plasma Lactic Acid Celestine (0.7-2.0) mmol/L Calcium (8.4-10.2) mg/dL Phosphorus (2.5-4.5) mg/dL Magnesium (1.6-2.3) mg/dL Total Bilirubin (0.2-1.3) mg/dL AST (17-59) U/L ALT (4-49) U/L Alkaline Phosphatase (38-126) U/L Total Protein (6.3-8.2) g/dL Albumin (3.5-5.0) g/dL Amylase 86 (30-110) U/L Lipase 344 H (23-300) U/L - Radiology Data Radiology results: report reviewed, image reviewed Disposition Clinical Impression: Hypophosphatasia, Lactic acidosis, Nausea and vomiting Disposition: ADMITTED IP TO THIS HOSP
[2023-12-23 12:21] LABS: AST 40 U/L (17-59); African American GFR (CKD) 82 (>60 ml/min/1.73 sqM); Albumin 5.7 g/dL (3.5-5.0); Alkaline Phosphatase 83 U/L (38-126); Anion Gap 21 mmol/L; Blood Urea Nitrogen 19 mg/dL (9-20); Calcium 10.8 mg/dL (8.4-10.2); Carbon Dioxide 22 mmol/L (22-30); Chloride 92 mmol/L (98-107); Glucose 141 mg/dL (74-99); Non-African American GFR(CKD) 71 (>60 ml/min/1.73 sqM); Potassium 3.6 mmol/L (3.5-5.1); Sodium 135 mmol/L (137-145); Total Bilirubin 2.5 mg/dL (0.2-1.3); Total Protein 8.7 g/dL (6.3-8.2)
[2023-12-23 12:28] LABS: ALT 35 U/L (4-49); Phosphorus 0.7 mg/dL (2.5-4.5)
[2023-12-23] MEDS ORDERED: Phosphorus Replacement Protoco 1 EACH MISC MISCELLANE PRN (12:49)
[2023-12-23] MEDS: SODIUM PHOSPHATE 60 MMOL in DEXTROSE 5% IN WATER 250 ML IVPB ONE (13:08)
[2023-12-23] MEDS: ONDANSETRON 4 MG/2 ML VIAL IVP STA (13:09)
[2023-12-23] MEDS: SODIUM CHLORIDE 0.9% 2,000 ML IV STA (13:09)
[2023-12-23] MEDS: HYDROmorphone 1 MG/ML 1 ML SYRINGE IVP STA (13:23)
[2023-12-23 13:45] LABS: Amylase 86 U/L (30-110); Lipase 344 U/L (23-300)
[2023-12-23] MEDS: levETIRAcetam IV 2,000 MG in SODIUM CHLORIDE 0.9% 250 ML IVPB SCH (14:16)
--- NOTE | 2023-12-23 14:32 | CT ---
EXAMINATION TYPE: CT abdomen pelvis w con DATE OF EXAM: 12/23/2023 COMPARISON: None HISTORY: 43-year-old male Nausea, Vomiting and Abdominal pain TECHNIQUE: Contiguous axial scanning of the abdomen and pelvis following administration of 100 ml Iso karey 300 IV contrast. Delayed images through the kidneys and coronal/sagittal reconstructions perform ed. CT DLP: 1105.4 mGycm Automated exposure control for dose reduction was used. FINDINGS: Heart normal size without pericardial effusion. Lung bases clear without pleural effusion. There appears to be diffuse gastric fold thickening. Right-sided MANAGER ORACLE RETAIL shunt catheter entering the right upper quadrant with tip down in the pelvis or mild f ree fluid is present. Liver borderline enlarged at 17.3 cm. No focal lesion or biliary ductal dilatation. Portal venous sys tem is patent. Gallbladder, adrenal glands, kidneys, and pancreas within normal limits. Spleen is mildly enlarged at 15.1 cm with a couple punctate calcified granulomas. No dilated small bowel or free air. Scattered mild stool within the colon. No pericolonic inflammatory change. Bladder partially distended. Some central prostate calcifications are noted. Prostate gland 3.8 cm wi de. Mild pelvic free fluid likely from the functional MANAGER ORACLE RETAIL shunt. No pelvic lymphadenopathy. Bones: No osseous destructive process. Mild degenerative disc disease lower thoracic spine. IMPRESSION: 1. MILD DIFFUSE GASTRIC FOLD THICKENING MAY BE DUE TO NONDISTENTION OR UNDERLYING GASTRITIS. 2. BORDERLINE LIVER SIZE AT 17.3 CM. MILD SPLENOMEGALY AT 15.1 CM. CLINICALLY CORRELATE. 3. MILD PELVIC FREE FLUID. THE PATIENT'S RIGHT-SIDED MANAGER ORACLE RETAIL SHUNT CATHETER TIP IS IN THIS REGION. FREE FL UID LIKELY FROM normal shunting of CSF. [facility], Workstation: [email or web address], 12/23/2023 2:30 PM
[2023-12-23] MEDS ORDERED: ACETAMINOPHEN TAB 325 MG TAB PO PRN (15:02)
[2023-12-23] MEDS ORDERED: HYDROmorphone 0.5 MG/0.5 ML SYRINGE IVP PRN (15:02)
[2023-12-23] MEDS ORDERED: HYDROcodone/APAP 5-325MG 1 EACH TAB PO PRN (15:02)
[2023-12-23] MEDS ORDERED: NALOXONE 0.4 MG/ML 1 ML VIAL IV PRN (15:02)
--- NOTE | 2023-12-23 15:42 | P.HPIM ---
History of Present Illness H&P Date: 12/16/23 Chief Complaint: intractable nausea and vomiting Patient is a 43-year-old male with a past medical history of glioblastoma status post multiple surgeries and GRADUATE RECRUITER shunt that was done at [facility]. Patient comes into the ED due to nausea vomiting. Patient states that symptoms started yesterday. He states that the vomiting looks really bad and describes it as projectile vomiting. Patient states that the vomiting happens suddenly. He states that he could be walking feeling fine and then all of a sudden started vomiting. Patient states that he is not able to keep anything down. Patient understands that his symptoms are due to brain mass. In the ED patient's WBC was 15.7, lactic acid 4.4, phosphorus 0.7 and bilirubin 2.[address] abdomen pelvis showed mild diffuse gastric wall thickening which may be due to nondistention or underlying gastritis. The remainder of the CT scan was unremarkable. ROS: 10 ROS reviewed and are negative except as noted in HPI Physical exam General: [Alert and oriented, well nourished, patient appears diaphoretic]. Eye: [PERRL, EOMI, normal conjunctiva]. HENT: [Normocephalic, clear tympanic membranes, normal hearing, moist oral mucosa, no scleral icterus, no sinus tenderness]. Neck: [Supple, non-tender, no carotid bruits, no JVD, no lymphadenopathy]. Lungs: [Clear to auscultation and percussion, non-labored respiration]. Heart: [Normal rate, regular rhythm, no murmur, gallop or edema]. Abdomen: [Soft, non-tender, non-distended, normal bowel sounds, no masses]. Musculoskeletal: [Normal range of motion and strength, no tenderness or swelling]. Skin: [Skin is warm, dry and pink, no rashes or lesions]. Neurologic: [Awake, alert, and oriented X3, CN II-XII intact]. Psychiatric: [Cooperative, appropriate mood and affect]. Assessment and plan Intractable nausea vomiting secondary to brain mass Patient understands that his care is supportive Will continue with IV fluids at 130 cc an hour IV Zofran as needed IV Compazine as needed Liquid diet Hypophosphatemia Patient will be given 60 mmol of sodium phosphate Will order for an additional 30 mmol of potassium phosphate Mild gastritis This was seen on CT scan likely due to the nausea vomiting Will start the patient IV Protonix Glioblastoma status post GRADUATE RECRUITER shunt [facility] just [facility] him Will switch Keppra to IV Will consult neurology to see if there is any sublingual option Leukocytosis likely due to nausea vomiting Will monitor for signs and symptoms of infection Hyperbilirubinemia CT scan negative for any gallbladder disease Elevated lipase Patient does not have any epigastric pain and CT scan negative for pancreatitis so acute pancreatitis ruled out DVT prophylaxis: No anticoagulation in the setting of brain mass Past Medical History Past Medical History: No Reported History, Cancer 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 brain sx x 5 Past Psychological History: No Psychological Hx Reported Smoking Status: Never smoker Past Alcohol Use History: Rare Past Drug Use History: None Reported Medications and Allergies Home Medications Medication Instructions Recorded Confirmed Type levETIRAcetam [Keppra] 2,000 mg PO Q12HR 12/23/23 12/23/23 History Allergies Allergy/AdvReac Type Severity Reaction Status Date / Time No Known Allergies Allergy Verified 12/23/23 13:18 Physical Exam Osteopathic Statement: *. No significant issues noted on an osteopathic structural exam other than those noted in the History and Physical/Consult. Vitals: Vital Signs Temp Pulse Resp BP Pulse Ox 12/23/23 13:19 62 23 134/91 100 12/23/23 11:39 97.6 F 68 26 H 115/49 99 Intake and Output 12/23/23 12/23/23 12/23/23 06:59 14:59 22:59 Other: Weight 99.79 kg Results CBC & Chem 7: 12/23/23 11:47 12/23/23 11:47 Labs: Abnormal Lab Results - Last 24 Hours (Table) 12/23/23 12/23/23 12/23/23 Range/Units 11:47 11:47 11:47 WBC 15.7 H (3.8-10.6) k/uL Hgb 17.8 H (13.0-17.5) gm/dL Neutrophils # 12.4 H (1.3-7.7) k/uL Sodium 135 L (137-145) mmol/L Chloride 92 L (98-107) mmol/L Glucose 141 H (74-99) mg/dL Plasma Lactic Acid Celestine 4.4 H* (0.7-2.0) mmol/L Calcium 10.8 H (8.4-10.2) mg/dL Phosphorus 0.7 L* (2.5-4.5) mg/dL Total Bilirubin 2.5 H (0.2-1.3) mg/dL Total Protein 8.7 H (6.3-8.2) g/dL Albumin 5.7 H (3.5-5.0) g/dL Lipase (23-300) U/L 12/23/23 Range/Units 11:47 WBC (3.8-10.6) k/uL Hgb (13.0-17.5) gm/dL Neutrophils # (1.3-7.7) k/uL Sodium (137-145) mmol/L Chloride (98-107) mmol/L Glucose (74-99) mg/dL Plasma Lactic Acid Celestine (0.7-2.0) mmol/L Calcium (8.4-10.2) mg/dL Phosphorus (2.5-4.5) mg/dL Total Bilirubin (0.2-1.3) mg/dL Total Protein (6.3-8.2) g/dL Albumin (3.5-5.0) g/dL Lipase 344 H (23-300) U/L
[2023-12-23] MEDS: LORazepam 2 MG/ML INJ IV PRN (15:59)
[2023-12-23] MEDS: SODIUM CHLORIDE 0.9% 1,000 ML IV STA (15:59)
[2023-12-23] MEDS: HYDROmorphone 1 MG/ML 1 ML SYRINGE IVP PRN (17:34)
[2023-12-23] MEDS: POTASSIUM PHOSPHATE 10 MMOL in SODIUM CHLORIDE 0.9% 250 ML IV SCH (17:35)
[2023-12-23] MEDS: ONDANSETRON 4 MG/2 ML VIAL IVP PRN (21:07)
[2023-12-23] MEDS: CALCIUM CARBONATE 500 MG CHEWABLE PO PRN (22:14)
[2023-12-24] MEDS: DEXTROSE 5%-0.45% NACL 1,000 ML IV SCH (01:04)
[2023-12-24] MEDS: PROCHLORPERAZINE INJ 10 MG/2 ML VIAL IVP PRN (01:37)
[2023-12-24 08:39] LABS: Basophils # (A) 0.01 X 10*3/uL (0.00-0.10); Basophils % (A) 0.1 %; Eosinophils # (A) 0.01 X 10*3/uL (0.04-0.35); Eosinophils % (A) 0.1 %; HCT 38.3 % (39.6-50.0); HGB 13.2 g/dL (13.0-17.0); Lymphocytes # (A) 1.02 X 10*3/uL (0.90-5.00); Lymphocytes % (A) 11.5 %; MCH 32.4 pg (27.0-32.0); MCHC 34.5 g/dL (32.0-37.0); MCV 93.9 FL (80.0-97.0); Mean Platelet Volume 10.5 FL (9.5-12.2); Monocytes # (A) 0.74 X 10*3/uL (0.20-1.00); Monocytes % (A) 8.4 %; NRBC Per 100 WBC 0 X 10*3/uL (0.00-0.01); Neutrophils # (A) 7.02 X 10*3/uL (1.80-7.70); Neutrophils % (A) 79.3 %; Platelet Count 157 X 10*3/uL (140-440); RBC 4.08 X 10*6/uL (4.40-5.60); RDW 12.9 % (11.5-14.5); WBC 8.85 X 10*3/uL (4.50-10.00)
[2023-12-24 09:03] LABS: Blood Urea Nitrogen 13.3 mg/dL (9.0-27.0); Carbon Dioxide 28.2 mmol/L (21.6-31.8); Chloride 103 mmol/L (96-109); Glucose 114 mg/dL (70-110); Magnesium 2.2 mg/dL (1.5-2.4); Phosphorus 3.8 mg/dL (2.4-5.1); Potassium 3.6 mmol/L (3.5-5.5); Sodium 141 mmol/L (135-145)
[2023-12-24 09:04] LABS: ALT 17 U/L (10-49); AST 18 U/L (14-35); Albumin 3.9 g/dL (3.8-4.9); Albumin/Globulin Ratio 2.44 Ratio (1.60-3.17); Alkaline Phosphatase 50 U/L (41-126); Calcium 7.9 mg/dL (8.7-10.3); Globulin 1.6 g/dL (1.6-3.3); Total Protein 5.5 g/dL (6.2-8.2)
[2023-12-24] MEDS: PANTOPRAZOLE 40 MG/10 ML VIAL IV SCH (09:06)
--- NOTE | 2023-12-24 09:25 | P.CNNES ---
History of Present Illness Consult date: 12/23/23 Requesting physician: Martin Mcdonough Reason for Consult: cannot tolerate oral meds and with history of seizure History of Present Illness: Patient is a 43-year-old right-handed male with history of glioblastoma multiform, currently in remission, came to the hospital because of intractable vomiting. Patient states that he was diagnosed with GBM about 3+ years ago after he has been having headaches for couple months. Brain imaging revealed a brain mass, and he underwent craniotomy soon after in [place] followed by radiation and chemotherapy at [facility]. His tumor has been in remission since then. He also has history of seizure disorder, gets seizure almost every 6 months. He is currently on Keppra 2000 mg twice daily, and takes medication as directed, does not miss the dose. His seizures are usually grand mal, associated with tongue bite and sometimes loss of control of urine and bowels. The last seizure was about 6 months ago. Patient has been having episodes in which he gets intractable nausea and vomiting for 2 or 3 days, goes away and then comes back. He has been seen by other physicians and no obvious cause has been found. He came with similar episode of nausea and vomiting. Vital signs on arrival blood pressure 115/49 pulse rate 68 temperature 97.6. WBC is normal 15.7 down to 8.85. Hemoglobin, platelets are normal. Sodium 135, potassium 3.6, normal renal functions. Lactate 4.4. Calcium 10.8 and phosphorus 0.7. Hepatic panel is normal. Amylase is normal, lipase is 344/300. Patient had EKG showed sinus tachycardia. CT of abdomen pelvis revealed mild diffuse gastric fold thickening may be due to nondistention or underlying gastritis. Borderline liver size at 17.3 cm. Mild splenomegaly at 15.1 cm. Mild pelvic free fluid. The patient's right-sided ASP DEVELOPER shunt catheter tip is in this region. Free fluid likely from normal shunting of CSF. Patient's last CT head from 07/11/2023 revealed no acute intracranial process seen at this time. Left-sided subdural hygromas slightly larger in size however there is no evidence for midline shift. I personally reviewed CT head, agree with the findings. Patient chews tobacco, but not often. He has been drinking alcohol somewhat heavily about 5 to 6 days a week, for the last 3 years. He drinks 4-5 beers per day. Sometimes he drinks whiskey and beer half pint a day. He drinks 1 or the other. He smokes marijuana but no drugs. He worked at [employer]. Review of Systems All review of systems mentioned as in HPI. 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, anxiety, panic attacks History of Any Multi-Drug Resistant Organisms: None Reported Past Surgical History: Orthopedic Surgery, Ventriculoperitoneal Shunt Additional Past Surgical History / Comment(s): bilateral hand surgeries, 5 brain surgeries Smoking Status: Never smoker Medications and Allergies Home Medications Medication Instructions Recorded Confirmed Type levETIRAcetam [Keppra] 2,000 mg PO Q12HR 12/23/23 12/23/23 History Allergies Allergy/AdvReac Type Severity Reaction Status Date / Time No Known Allergies Allergy Verified 12/23/23 13:18 Physical Examination - Vital Signs Vital Signs: Vital Signs Temp Pulse Resp BP Pulse Ox 12/23/23 16:04 117/77 12/23/23 16:00 98.2 F 93 22 99 12/23/23 13:19 62 23 134/91 100 12/23/23 11:39 97.6 F 68 26 H 115/49 99 Intake and Output 12/23/23 12/23/23 12/23/23 06:59 14:59 22:59 Intake Total 1080 Balance 1080 Intake: Oral 1080 Other: Weight 99.79 kg 99.79 kg Patient is a middle aged male, very pleasant, in no acute distress. Patient is alert awake oriented to time place and person. Speech and language functions are normal. Patient can name and repeat very well. No aphasia or dysarthria. Attention, concentration and fund of knowledge is adequate. Patient has prominence over his right scalp region from shunt placement. He has evidence of left sided craniotomy. On cranial nerve examination, pupils are equal, round and reacting to light, visual sandra are full on confrontation, with no neglect on double simultaneous stimulation. Extraocular muscles are intact with no nystagmus. Face is symmetric, tongue protrudes to the midline. Palatal elevation and sensation normal, hearing and shoulder shrug normal, facial sensation normal. On muscle strength testing, there is no pronator drift and the strength is normal in arms and legs distally and proximally. Deep tendon reflexes are symmetric 2+ all over and plantars downgoing. Sensory to touch is equal with no neglect on double simultaneous stimulation. Cerebellar function showed no ataxia for [id number] testing. No dysdiadochokinesia. No ataxia for [id number] testing on either side. Tone and bulk of muscles normal. Gait deferred.. On general examination, there is no carotid bruit or murmur, S1-S2 audible. Chest is clear on consultation. Abdomen is soft nontender. No organomegaly, bowel sounds present. Peripheral pulses are present. No peripheral edema. Results - Laboratory Findings CBC and BMP: 12/24/23 03:07 12/24/23 03:07 Abnormal Lab Findings: Abnormal Labs 12/23/23 12/23/23 12/23/23 11:47 11:47 11:47 WBC 15.7 H Hgb 17.8 H Neutrophils # 12.4 H Sodium 135 L Chloride 92 L Glucose 141 H Plasma Lactic Acid Celestine 4.4 H* Calcium 10.8 H Phosphorus 0.7 L* Total Bilirubin 2.5 H Total Protein 8.7 H Albumin 5.7 H Lipase 12/23/23 11:47 WBC Hgb Neutrophils # Sodium Chloride Glucose Plasma Lactic Acid Celestine Calcium Phosphorus Total Bilirubin Total Protein Albumin Lipase 344 H Assessment and Plan Assessment: * History of glioblastoma multiforme, currently in remission. * History of ventriculoperitoneal shunting due to above, stable. * Episodic bouts of nausea vomiting, perhaps due to gastritis. Patient does have significant alcoholism, which may be contributing. 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 * Alcoholism * Elevated lipase * Marijuana use * Chews tobacco Plan: * Agree with changing Keppra 2 g twice daily from oral to IV form, until patient able to take by mouth. When he is able to take by mouth, then switch back to oral formulation. * Patient recommended decrease, perhaps abstain from alcohol use, which may be contributing to gastritis. * Treatment of nausea/vomiting, gastritis as per IM. * Patient states he had an MRI of the brain with and without contrast performed at [facility] just a month ago and everything was well, no tumor recurrence, no hydrocephalus. No need for repeat imaging at this time. * Neurologically clear, when cleared medically. * Thank you for the consultation.
--- NOTE | 2023-12-24 11:17 | P.PN ---
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 Patient comes into the ED due to nausea vomiting. Patient states that symptoms started yesterday. He states that the vomiting looks really bad and describes it as projectile vomiting. Patient states that the vomiting happens suddenly. He states that he could be walking feeling fine and then all of a sudden started vomiting. Patient states that he is not able to keep anything down. Patient understands that his symptoms are due to brain mass. In the ED patient's WBC was 15.7, lactic acid 4.4, phosphorus 0.7 and bilirubin 2.[address] abdomen pelvis showed mild diffuse gastric wall thickening which may be due to nondistention or underlying gastritis. The remainder of the CT scan was unremarkable. Patient seen this morning. He states that he still having nausea vomiting. He understands that we are just doing supportive care for him. Physical exam General examination - Alert and Oriented 3 in NAD Heart - + S1S2 no murmurs Lungs - Clear to auscultation Abdomen soft NT ND +ve BS Extremities - No edema [employer] - Moving all 4 extremities spontaneously Psych - Calm and cooperative Assessment and plan Intractable nausea vomiting secondary to brain mass Patient understands that his care is supportive Will continue with IV fluids at 130 cc an hour IV Zofran as needed IV Compazine as needed Liquid diet Patient states that his stay in the hospital has been comforting. Hypophosphatemia Resolved Mild gastritis This was seen on CT scan likely due to the nausea vomiting Will start the patient IV Protonix Glioblastoma status post AFTER SCHOOL PROGRAM COORDINATOR shunt Per patient his doctors at [facility] said that they are just monitoring him Will switch Keppra to IV Patient states that he is able to tolerate oral intake. So we will plan to switch his Keppra to oral at the time of discharge Leukocytosis likely due to nausea vomiting Resolved Hyperbilirubinemia CT scan negative for any gallbladder disease Elevated lipase Patient does not have any epigastric pain and CT scan negative for pancreatitis so acute pancreatitis ruled out DVT prophylaxis: No anticoagulation in the setting of brain mass Anticipate patient be ready for discharge the next 24 hours Objective - Vital Signs Vital signs: Vital Signs Temp 98.0 F 12/24/23 07:13 Pulse 59 L 12/24/23 07:13 Resp 16 12/24/23 10:31 BP 115/64 12/24/23 07:13 Pulse Ox 98 12/24/23 07:13 FiO2 Intake & Output 12/23/23 12/24/23 12/24/23 18:59 06:59 18:59 Intake Total 1080 1900 Output Total 500 Balance 1080 1400 Weight 99.79 kg Intake: Intake, IV Titration 1900 Amount Dextrose 5%-0.45% NaCl 1, 400 000 ml @ 75 mls/hr IV . [id number] [facility] Rx#:[id number] Potassium Phosphate 10 750 mmol In Sodium Chloride 0 .9% 250 ml @ 125 mls/hr IV Q2H [facility] Rx#:[id number] Sodium Chloride 0.9% 1, 500 000 ml @ 130 mls/hr IV . Q7H42M [facility] Rx#:[id number] levETIRAcetam IV 2,000 mg 250 In Sodium Chloride 0.9% 250 ml @ 1000 mls/hr IVPB BID [facility] Rx#:[id number] Oral 1080 Output: Urine 500 Other: Voiding Method Toilet Toilet - Labs CBC & Chem 7: 12/24/23 03:07 12/24/23 03:07 Labs: Abnormal Lab Results - Last 24 Hours (Table) 12/23/23 12/23/23 12/23/23 Range/Units 11:47 11:47 11:47 WBC 15.7 H (3.8-10.6) k/uL RBC (4.40-5.60) X 10*6/uL Hgb 17.8 H (13.0-17.5) gm/dL Hct (39.6-50.0) % MCH (27.0-32.0) pg Immature Gran # (0.00-0.04) X 10*3/uL Neutrophils # 12.4 H (1.3-7.7) k/uL Eosinophils # (0.04-0.35) X 10*3/uL Sodium 135 L (137-145) mmol/L Chloride 92 L (98-107) mmol/L Glucose 141 H (74-99) mg/dL Plasma Lactic Acid Celestine 4.4 H* (0.7-2.0) mmol/L Calcium 10.8 H (8.4-10.2) mg/dL Phosphorus 0.7 L* (2.5-4.5) mg/dL Total Bilirubin 2.5 H (0.2-1.3) mg/dL Total Protein 8.7 H (6.3-8.2) g/dL Albumin 5.7 H (3.5-5.0) g/dL Lipase (23-300) U/L 12/23/23 12/23/23 12/24/23 Range/Units 11:47 21:02 03:07 WBC (3.8-10.6) k/uL RBC 4.08 L (4.40-5.60) X 10*6/uL Hgb (13.0-17.5) gm/dL Hct 38.3 L (39.6-50.0) % MCH 32.4 H (27.0-32.0) pg Immature Gran # 0.05 H (0.00-0.04) X 10*3/uL Neutrophils # (1.3-7.7) k/uL Eosinophils # 0.01 L (0.04-0.35) X 10*3/uL Sodium (137-145) mmol/L Chloride (98-107) mmol/L Glucose (74-99) mg/dL Plasma Lactic Acid Celestine (0.7-2.0) mmol/L Calcium (8.4-10.2) mg/dL Phosphorus 5.1 H (2.5-4.5) mg/dL Total Bilirubin (0.2-1.3) mg/dL Total Protein (6.3-8.2) g/dL Albumin (3.5-5.0) g/dL Lipase 344 H (23-300) U/L 12/24/23 Range/Units 03:07 WBC (3.8-10.6) k/uL RBC (4.40-5.60) X 10*6/uL Hgb (13.0-17.5) gm/dL Hct (39.6-50.0) % MCH (27.0-32.0) pg Immature Gran # (0.00-0.04) X 10*3/uL Neutrophils # (1.3-7.7) k/uL Eosinophils # (0.04-0.35) X 10*3/uL Sodium (137-145) mmol/L Chloride (98-107) mmol/L Glucose 114 H (74-99) mg/dL Plasma Lactic Acid Celestine (0.7-2.0) mmol/L Calcium 7.9 L (8.4-10.2) mg/dL Phosphorus (2.5-4.5) mg/dL Total Bilirubin (0.2-1.3) mg/dL Total Protein 5.5 L (6.3-8.2) g/dL Albumin (3.5-5.0) g/dL Lipase (23-300) U/L
[2023-12-25 02:40] VITALS: TEMP 98.3
[2023-12-25 08:56] VITALS: BP 145/91; PULSE 66; RESP 16
--- NOTE | 2023-12-25 11:36 | P.PN ---
Subjective Progress Note Date: 12/24/23 Patient was seen for follow-up. Patient continues to have frequent nausea and vomiting. No seizures. Patient on IV Keppra at this time. No new concerns. Objective - Vital Signs Vital signs: Vital Signs Temp 97.7 F 12/24/23 13:01 Pulse 74 12/24/23 13:01 Resp 17 12/24/23 13:01 BP 129/76 12/24/23 13:01 Pulse Ox 93 L 12/24/23 13:01 FiO2 Intake & Output 12/23/23 12/24/23 12/24/23 18:59 06:59 18:59 Intake Total 1080 1900 Output Total 500 Balance 1080 1400 Weight 99.79 kg Intake: Intake, IV Titration 1900 Amount Dextrose 5%-0.45% NaCl 1, 400 000 ml @ 75 mls/hr IV . [id number] [facility] Rx#:[id number] Potassium Phosphate 10 750 mmol In Sodium Chloride 0 .9% 250 ml @ 125 mls/hr IV Q2H [facility] Rx#:[id number] Sodium Chloride 0.9% 1, 500 000 ml @ 130 mls/hr IV . Q7H42M [facility] Rx#:[id number] levETIRAcetam IV 2,000 mg 250 In Sodium Chloride 0.9% 250 ml @ 1000 mls/hr IVPB BID [facility] Rx#:[id number] Oral 1080 Output: Urine 500 Other: Voiding Method Toilet Toilet - Exam Examination normal, unchanged as yesterday. - Labs CBC & Chem 7: 12/24/23 03:07 12/24/23 03:07 Labs: Abnormal Lab Results - Last 24 Hours (Table) 12/23/23 12/24/23 12/24/23 Range/Units 21:02 03:07 03:07 RBC 4.08 L (4.40-5.60) X 10*6/uL Hct 38.3 L (39.6-50.0) % MCH 32.4 H (27.0-32.0) pg Immature Gran # 0.05 H (0.00-0.04) X 10*3/uL Eosinophils # 0.01 L (0.04-0.35) X 10*3/uL Glucose 114 H (70-110) mg/dL Calcium 7.9 L (8.7-10.3) mg/dL Phosphorus 5.1 H (2.5-4.5) mg/dL Total Protein 5.5 L (6.2-8.2) g/dL Assessment and Plan Assessment: * History of glioblastoma multiforme, currently in remission. * History of ventriculoperitoneal shunting due to above, stable. * Episodic bouts of nausea vomiting, perhaps due to gastritis. Patient does have significant alcoholism, which may be contributing. 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 * Alcoholism * Elevated lipase * Marijuana use * Chews tobacco Plan: * Agree with changing Keppra 2 g twice daily from oral to IV form, until patient able to take by mouth. When he is able to take by mouth, then switch back to oral formulation. * Patient recommended decrease, perhaps abstain from alcohol use, which may be contributing to gastritis. * Treatment of nausea/vomiting, gastritis as per IM. * Patient states he had an MRI of the brain with and without contrast performed at [facility] just a month ago and everything was well, no tumor recurrence, no hydrocephalus. No need for repeat imaging at this time. * Neurologically clear, when cleared medically.
--- NOTE | 2023-12-25 12:08 | P.DS ---
Providers Date of admission: 12/23/23 13:18 Attending physician: Roland Dao Consults: 12/23/23 15:51 Consult Physician Routine Consulting Provider: June Arreola Consult Reason/Comments: cannot tolerate oral meds and with history of seizure Do you want consulting provider notified?: Yes Primary care physician: Stated None Hospital Course: Discharge Diagnosis: Intractable nausea vomiting secondary to brain mass Hypophosphatemia: Resolved Mild gastritis Glioblastoma status post SHEET METAL FOREMAN shunt and multiple surgeries Leukocytosis likely due to nausea vomiting: Resolved Hyperbilirubinemia: Resolved Elevated lipase: Pancreatitis ruled out Hospital Course: Patient is a 43-year-old male with a past medical history of glioblastoma status post multiple surgeries and SHEET METAL FOREMAN shunt that [facility] Patient comes into the ED due to nausea vomiting. Patient states that symptoms started yesterday. He states that the vomiting looks really bad and describes it as projectile vomiting. Patient states that the vomiting happens suddenly. He states that he could be walking feeling fine and then all of a sudden started vomiting. Patient states that he is not able to keep anything down. Patient understands that his symptoms are due to brain mass. In the ED patient's WBC was 15.7, lactic acid 4.4, phosphorus 0.7 and bilirubin 2.[address] abdomen pelvis showed mild diffuse gastric wall thickening which may be due to nondistention or underlying gastritis. The remainder of the CT scan was unremarkable. Patient was treated with supportive care with IV fluids and IV antiemetics. At the time of discharge patient reported that he is feeling much better. He is looking forward to going home. Patient seen and examined at bedside.[] Vital signs reviewed and stable. General: [non toxic], [no distress], [appears at stated age] Derm: [warm], [dry] Head: [atraumatic], [normocephalic], [symmetric] Eyes: [EOMI], [no lid lag], [anicteric sclera] Mouth: [no lip lesion], [mucus membranes moist] Cardiovascular: [S1S2 reg], [no murmur], [positive posterior tibial pulse bilateral], Lungs: [CTA bilateral], [no rhonchi, no rales] , [no accessory muscle use] Abdominal: [soft], [ nontender to palpation], [no guarding], [no appreciable organomegaly] Ext: [no gross muscle atrophy], [no edema], [no contractures] Neuro: [ CN II-XI grossly intact], [no focal neuro deficits] Psych: [Alert], [oriented], [appropriate affect] A total of [33] minutes of time were spent preparing this complex discharge summary . Patient Condition at Discharge: Poor Plan - Discharge Summary New Discharge Prescriptions: Continue levETIRAcetam [Keppra] 2,000 mg PO Q12HR Discharge Medication List levETIRAcetam [Keppra] 2,000 mg PO Q12HR 12/23/23 [History] Follow up Appointment(s)/Referral(s): None,Stated [Primary Care Provider] - 1-2 days Discharge Disposition: HOME SELF-CARE
== END 2023-12-25 14:07 | disposition home or self-care (01) | DRG 55 ==
LOC: EC 11:38 → 5NMEDONC 13:18
PROVIDERS: ADMIT Student in an Organized Health Care Education/Training Program; ATTEND Student in an Organized Health Care Education/Training Program
DX: C71.9 Malignant neoplasm of brain, unspecified (principal); E87.20 Acidosis, unspecified; R17 Unspecified jaundice; G96.08 Other cranial cerebrospinal fluid leak; E83.39 Other disorders of phosphorus metabolism; F10.20 Alcohol dependence, uncomplicated; K29.70 Gastritis, unspecified, without bleeding; D72.829 Elevated white blood cell count, unspecified; F17.220 Nicotine dependence, chewing tobacco, uncomplicated; R16.1 Splenomegaly, not elsewhere classified; R74.8 Abnormal levels of other serum enzymes; Z98.2 Presence of cerebrospinal fluid drainage device; Z86.69 Personal history of other diseases of the nervous system and sense organs
CPT/HCPCS: 36415; 74177; 80053; 82150; 83605; 83690; 83735; 84100; 85025; 93005; 96365; 96366; 96368; 96375; 99285

== ENCOUNTER 2024-01-16 20:34 | Emergency (ER) | payer BC ==
[2024-01-16 20:40] VITALS: RESP 18; TEMP 98.3
--- NOTE | 2024-01-16 21:07 | ED ---
General Adult HPI - General Chief complaint: Nausea/Vomiting/Diarrhea Stated complaint: vomiting Time Seen by Provider: 01/16/24 20:47 Source: patient Mode of arrival: ambulatory - History of Present Illness Initial comments: Patient is a 43-year-old man who states that he has "dealing glioblastomas" and presents with complaint of intractable nausea and vomiting. He states that the vomiting started this morning and has not let up. He has tried both ondansetron and granisetron at home without much relief. He states that with vomiting 2 episodes ago he had some bright red blood. With the last episode there was no bright red blood but there was a small amount of coffee-ground emesis. He is denying abdominal pain but he does have some substernal burning after the vomit ing. In relation to his glioblastoma's, the patient states that he has chronic headaches. He has not noticed a change in the headache other than it is more severe during vomiting. No change in vision or any new neurologic symptoms. No neck stiffness or pain. The patient does have intraventricular shunt. He has not noted fevers or chills. Onset/Timin -: days(s) Location: head Radiation: non-radiation Quality: aching Consistency: constant Improves with: none Worsens with: none Associated Symptoms: nausea/vomiting Treatments Prior to Arrival: other (Antiemetics) - Related Data Home Medications Medication Instructions Recorded Confirmed levETIRAcetam [Keppra] 2,000 mg PO Q12HR 12/23/23 12/23/23 Previous Rx's Medication Instructions Recorded Metoclopramide [Reglan] 10 mg PO ACH[facility] #12 tab 01/17/24 Allergies Allergy/AdvReac Type Severity Reaction Status Date / Time No Known Allergies Allergy Verified 12/23/23 13:18 Review of Systems ROS Statement: Those systems with pertinent positive or pertinent negative responses have been documented in the HPI. ROS Other: All systems not noted in ROS Statement are negative. Constitutional: Denies: fever, chills, weakness Eyes: Denies: eye pain, vision change ENT: Denies: ear pain, hearing loss, congestion Respiratory: Denies: cough, dyspnea Cardiovascular: Denies: chest pain, syncope Gastrointestinal: Reports: nausea, vomiting, hematemesis. Denies: abdominal pain, diarrhea, melena, hematochezia Genitourinary: Denies: dysuria, hematuria Musculoskeletal: Denies: back pain Skin: Denies: rash Neurological: Reports: headache (Chronic). 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 Absent: scleral icterus, conjunctival injection ENT exam: Present: normal oropharynx, mucous membranes moist Neck exam: Present: normal inspection, full ROM. Absent: tenderness, meningismus Respiratory exam: Present: normal lung sounds bilaterally. Absent: respiratory distress, wheezes, rales, rhonchi, stridor, accessory muscle use Cardiovascular Exam: Present: regular rate, normal rhythm, normal heart sounds. Absent: systolic murmur, diastolic murmur, rubs GI/Abdominal exam: Present: soft. Absent: distended, tenderness, guarding, rebound, rigid, mass Extremities exam: Present: normal inspection, normal capillary refill. Absent: pedal edema, calf tenderness Back exam: Present: normal inspection. Absent: CVA tenderness (R), CVA tendern ess (L) Neurological exam: Present: alert, oriented X3, CN II-XII intact. Absent: motor sensory deficit Skin exam: Present: warm, dry, intact, normal color. Absent: rash Course Vital Signs 01/16/24 01/17/24 20:37 00:33 Temperature 98.3 F Pulse Rate 110 H 85 Respiratory 18 18 Rate Blood Pressure 131/85 147/91 O2 Sat by Pulse 99 98 Oximetry Medical Decision Making - Medical Decision Making Was pt. sent in by a medical professional or institution (, PA, [facility], urgent care, hospital, or fdc...) When possible be specific @ -[No] Did you speak to anyone other than the patient for history (EMS, parent, family, police, friend...)? What history was obtained from this source @ -[No] Did you review nursing and triage notes (agree or disagree)? Why? @ -[I reviewed and agree with nursing and triage notes] Were old charts reviewed (outside hosp., previous admission, EMS record, old EKG, old radiological studies, urgent care reports/EKG's, fdc records)? Report findings @ -[No old charts were reviewed] Differential Diagnosis (chest pain, altered mental status, abdominal pain women, abdominal pain men, vaginal bleeding, weakness, fever, dyspnea, syncope, headache, dizziness, GI bleed, back pain, seizure, CVA, palpatations, mental health, musculoskeletal)? @ -[Differential for this patient's symptoms includes, chronic nausea and vomiting related to the patient's cancer, gastroenteritis, acute surgical condition, shunt malfunction, this list not comprehensive EKG interpreted by me (3pts min.). @ -[As above] X-rays interpreted by me (1pt min.). @ -[None done] CT interpreted by me (1pt min.). @ -[None done] U/S interpreted by me (1pt. min.). @ -[None done] What testing was considered but not performed or refused? (CT, X-rays, U/S, labs)? Why? @ -[None] What meds were considered but not given or refused? Why? @ -[None] Did you discuss the management of the patient with other professionals (professionals i.e. , PA, [facility] [facility], lab, RT, psych nurse, social director, health records technology teacher, teacher, officer lieutenant, transplant case manager)? Give summary @ -[No] Was smoking cessation discussed for >3mins.? @ -[No] Was critical care preformed (if so, how long)? @ -[No] Were there social determinants of health that impacted care today? How? (Homelessness, low income, unemployed, alcoholism, drug addiction, transportation, low edu. Level, literacy, decrease access to med. care, detention, rehab)? @ -[No] Was there de-escalation of care discussed even if they declined (Discuss DNR or withdrawal of care, Hospice)? DNR status @ -[No] What co-morbidities impacted this encounter? (DM, HTN, Smoking, COPD, CAD, Cancer, CVA, ARF, Chemo, Hep., AIDS, mental health diagnosis, sleep apnea, morbid obesity)? @ -[. Glioblastoma Was patient admitted / discharged? Hospital course, mention meds given and route, prescriptions, significant lab abnormalities, going to OR and other pertinent info. @ -[Patient is 43-year-old man with exacerbation of acute nausea and vomiting. After evaluation, I did recommend patient consider being transferred to facility with neurosurgery to rule out shunt malfunction. Patient declines to have transfer. He was feeling better following the medication . he states that he will attempt to arrange shunt evaluation if his chronic symptoms worsen Undiagnosed new problem with uncertain prognosis? @ -[No] Drug Therapy requiring intensive monitoring for toxicity (Heparin, Nitro, Insulin, Cardizem)? @ -[No] Were any procedures done? @ -[No] Diagnosis/symptom? @ -[Acute nausea and vomiting Chronic headache Acute, or Chronic, or Acute on Chronic? @ -[default] Uncomplicated (without systemic symptoms) or Complicated (systemic symptoms)? @ -[default] Side effects of treatment? @ -[No] Exacerbation, Progression, or Severe Exacerbation? @ -[No] Poses a threat to life or bodily function? How? (Chest pain, [place], VA, pneumonia, PE, COPD, DKA, ARF, appy, cholecystitis, CVA, Diverticulitis, Homicidal, Suicidal, threat to staff... and all critical care pts) @ -[There is possible threat to life requires follow-up with neurosurgeon - Lab Data Result diagrams: 01/16/24 20:52 01/16/24 20:52 Lab Results 01/16/24 01/16/24 01/16/24 Range/Units 20:52 20:52 20:52 WBC 14.9 H (3.8-10.6) k/uL RBC 5.37 (4.30-5.90) m/uL Hgb 17.6 H (13.0-17.5) gm/dL Hct 49.5 (39.0-53.0) % MCV 92.1 (80.0-100.0) fL MCH 32.7 (25.0-35.0) pg MCHC 35.5 (31.0-37.0) g/dL RDW 13.0 (11.5-15.5) % Plt Count 259 (150-450) k/uL MPV 7.7 Neutrophils % 86 % Lymphocytes % 8 % Monocytes % 6 % Eosinophils % 0 % Basophils % 0 % Neutrophils # 12.7 H (1.3-7.7) k/uL Lymphocytes # 1.1 (1.0-4.8) k/uL Monocytes # 0.9 (0-1.0) k/uL Eosinophils # 0.0 (0-0.7) k/uL Basophils # 0.0 (0-0.2) k/uL Hyperchromasia Slight Sodium 135 L (137-145) mmol/L Potassium 2.9 L (3.5-5.1) mmol/L Chloride 93 L (98-107) mmol/L Carbon Dioxide 30 (22-30) mmol/L Anion Gap 12 mmol/L BUN 17 (9-20) mg/dL Creatinine 1.06 (0.66-1.25) mg/dL Est GFR (CKD-EPI)AfAm >90 (>60 ml/min/1.73 sqM) Est GFR (CKD-EPI)NonAf 86 (>60 ml/min/1.73 sqM) Glucose 127 H (74-99) mg/dL Plasma Lactic Acid Celestine 2.0 (0.7-2.0) mmol/L Calcium 10.1 (8.4-10.2) mg/dL Phosphorus 2.7 (2.5-4.5) mg/dL Magnesium 2.1 (1.6-2.3) mg/dL Total Bilirubin 2.0 H (0.2-1.3) mg/dL AST 28 (17-59) U/L ALT 22 (4-49) U/L Alkaline Phosphatase 73 (38-126) U/L Total Protein 8.5 H (6.3-8.2) g/dL Albumin 5.6 H (3.5-5.0) g/dL Disposition Clinical Impression: Nausea and vomiting Disposition: HOME SELF-CARE Condition: Good Instructions (If sedation given, give patient instructions): Acute Nausea and Vomiting in Children (ED) Prescriptions: Metoclopramide [Reglan] 10 mg PO ACHS #12 tab Is patient prescribed a controlled substance at d/c from ED?: No Referrals: Lorena Molina MD [Primary Care Provider] - 1-2 days
[2024-01-16] MEDS: SODIUM CHLORIDE 0.9% 1,000 ML IV STA (21:17)
[2024-01-16] MEDS: ONDANSETRON 4 MG/2 ML VIAL IVP STA (21:17)
[2024-01-16] MEDS: SODIUM CHLORIDE 0.9% 1,000 ML IV ONE ×2 (21:17→22:17)
[2024-01-16] MEDS: levETIRAcetam IV 2,000 MG in SODIUM CHLORIDE 0.9% 250 ML IVPB ONE (21:29)
[2024-01-16 21:42] LABS: Basophils % (A) 0 %; Eosinophils % (A) 0 %; HCT 49.5 % (39.0-53.0); HGB 17.6 gm/dL (13.0-17.5); Hyperchromasia Slight; Lymphocytes # (A) 1.1 k/uL (1.0-4.8); Lymphocytes % (A) 8 %; MCH 32.7 pg (25.0-35.0); MCHC 35.5 g/dL (31.0-37.0); MCV 92.1 fL (80.0-100.0); Mean Platelet Volume 7.7; Monocytes # (A) 0.9 k/uL (0-1.0); Monocytes % (A) 6 %; Neutrophils # (A) 12.7 k/uL (1.3-7.7); Neutrophils % (A) 86 %; Platelet Count 259 k/uL (150-450); RBC 5.37 m/uL (4.30-5.90); WBC 14.9 k/uL (3.8-10.6)
[2024-01-16 21:47] LABS: ALT 22 U/L (4-49); AST 28 U/L (17-59); African American GFR (CKD) >90 (>60 ml/min/1.73 sqM); Albumin 5.6 g/dL (3.5-5.0); Alkaline Phosphatase 73 U/L (38-126); Anion Gap 12 mmol/L; Blood Urea Nitrogen 17 mg/dL (9-20); Calcium 10.1 mg/dL (8.4-10.2); Carbon Dioxide 30 mmol/L (22-30); Chloride 93 mmol/L (98-107); Glucose 127 mg/dL (74-99); Magnesium 2.1 mg/dL (1.6-2.3); Non-African American GFR(CKD) 86 (>60 ml/min/1.73 sqM); Phosphorus 2.7 mg/dL (2.5-4.5); Potassium 2.9 mmol/L (3.5-5.1); Sodium 135 mmol/L (137-145); Total Protein 8.5 g/dL (6.3-8.2)
[2024-01-16] MEDS: METOCLOPRAMIDE 5 MG/ML 2 ML VIAL IVP STA (22:14)
[2024-01-16] MEDS: HYDROmorphone 1 MG/ML 1 ML SYRINGE IVP STA (22:23)
[2024-01-17] MEDS: METOCLOPRAMIDE 5 MG/ML 2 ML VIAL IVP STA (00:27)
[2024-01-17] MEDS: HYDROmorphone 1 MG/ML 1 ML SYRINGE IVP STA (00:28)
[2024-01-17 00:34] VITALS: BP 147/91; PULSE 85
[2024-01-17] MEDS: ONDANSETRON 4 MG/2 ML VIAL IVP STA (00:42)
[2024-01-17] MEDS: POTASSIUM CHLORIDE ER 20 MEQ TAB.ER PO STA ×2 (00:49)
== END 2024-01-17 00:54 | disposition home or self-care (01) ==
LOC: EC 20:34
DX: R11.2 Nausea with vomiting, unspecified (principal)
CPT/HCPCS: 36415; 80053; 83605; 83735; 84100; 85025; 99284; 96365; 96375 ×3; 96376 ×3; 96361 ×3; J2765 ×2; J2405 ×2; J1171 ×2; J1953

== ENCOUNTER 2024-04-11 12:36 | Emergency (ER) | payer BC ==
[2024-04-11] MEDS: KETOROLAC 15 MG/ML 1 ML VIAL IVP STA (13:19)
[2024-04-11] MEDS: METOCLOPRAMIDE 5 MG/ML 2 ML VIAL IVP STA (13:21)
[2024-04-11] MEDS: diphenhydrAMINE 50 MG/ML 1 ML VIAL IVP STA (13:22)
[2024-04-11] MEDS: SODIUM CHLORIDE 0.9% 2,000 ML IV ONE (13:23)
[2024-04-11 13:24] LABS: Basophils % (A) 0 %; Eosinophils # (A) 0.1 k/uL (0-0.7); Eosinophils % (A) 1 %; HGB 16.8 gm/dL (13.0-17.5); Lymphocytes # (A) 1.5 k/uL (1.0-4.8); Lymphocytes % (A) 10 %; MCH 32.9 pg (25.0-35.0); MCHC 34.9 g/dL (31.0-37.0); MCV 94.2 fL (80.0-100.0); Mean Platelet Volume 7.1; Monocytes # (A) 0.7 k/uL (0-1.0); Monocytes % (A) 5 %; Neutrophils # (A) 12.9 k/uL (1.3-7.7); Neutrophils % (A) 84 %; Platelet Count 347 k/uL (150-450); RDW 12.3 % (11.5-15.5); WBC 15.3 k/uL (3.8-10.6)
[2024-04-11 13:36] LABS: AST 42 U/L (17-59); African American GFR (CKD) 69 (>60 ml/min/1.73 sqM); Albumin 5.3 g/dL (3.5-5.0); Alkaline Phosphatase 110 U/L (38-126); Anion Gap 26 mmol/L; Blood Urea Nitrogen 15 mg/dL (9-20); Calcium 10.6 mg/dL (8.4-10.2); Carbon Dioxide 13 mmol/L (22-30); Chloride 96 mmol/L (98-107); Glucose 190 mg/dL (74-99); Magnesium 1.9 mg/dL (1.6-2.3); Non-African American GFR(CKD) 60 (>60 ml/min/1.73 sqM); Potassium 3.5 mmol/L (3.5-5.1); Sodium 135 mmol/L (137-145); Total Bilirubin 1.4 mg/dL (0.2-1.3); Total Protein 8.4 g/dL (6.3-8.2)
[2024-04-11 13:43] LABS: ALT 36 U/L (4-49)
[2024-04-11] MEDS: levETIRAcetam IV 2,000 MG in SODIUM CHLORIDE 0.9% 250 ML IVPB ONE (14:08)
--- NOTE | 2024-04-11 14:57 | ED ---
Nausea/Vomiting/Diarrhea HPI - General Chief complaint: Nausea/Vomiting/Diarrhea Stated complaint: Body Aches Time Seen by Provider: 04/11/24 12:40 Source: patient, RN notes reviewed Mode of arrival: ambulatory Limitations: no limitations - History of Present Illness Initial comments: 43-year-old male presents emergency department complaint of severe nausea vomiting body aches. Patient states is a recurrent issue secondary to multiple brain surgeries for prior glioblastoma. Patient states that he does not have a worsening headache no focal deficits. Patient states this is what happens when he cannot take his medications. Patient states has not had his Keppra, states he has not been able to take his Zofran or Reglan. Patient denies any chest pain shortness of breath no fevers or chills no other complaints. - Related Data Home Medications Medication Instructions Recorded Confirmed levETIRAcetam [Keppra] 2,000 mg PO Q12HR 12/23/23 12/23/23 Previous Rx's Medication Instructions Recorded Metoclopramide [Reglan] 10 mg PO ACHS #12 tab 01/17/24 Allergies Allergy/AdvReac Type Severity Reaction Status Date / Time No Known Allergies Allergy Verified 04/11/24 12:55 Review of Systems ROS Statement: Those systems with pertinent positive or pertinent negative responses have been documented in the HPI. ROS Other: All systems not noted in ROS Statement are negative. 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 Absent: normal inspection (Right parietal temporal scarring noted) Eye exam: Present: normal appearance, PERRL, EOMI. Absent: scleral icterus, conjunctival injection, periorbital swelling ENT exam: Present: normal exam, normal oropharynx, mucous membranes moist Neck exam: Present: normal inspection, full ROM. Absent: tenderness, meningismus, lymphadenopathy Respiratory exam: Present: normal lung sounds bilaterally. Absent: respiratory distress, wheezes, rales, rhonchi, stridor Cardiovascular Exam: Present: normal rhythm, tachycardia, normal heart sounds. Absent: systolic murmur, diastolic murmur, rubs, gallop, clicks GI/Abdominal exam: Present: soft, normal bowel sounds. Absent: distended, tenderness, guarding, rebound, rigid Neurological exam: Present: alert, oriented X3, CN II-XII intact, reflexes normal. Absent: motor sensory deficit Course Vital Signs 04/11/24 04/11/24 04/11/24 12:50 14:38 15:27 Temperature 97.9 F 99.2 F Pulse Rate 126 H 78 83 Respiratory 22 18 16 Rate Blood Pressure 118/76 148/84 164/79 O2 Sat by Pulse 100 99 99 Oximetry Medical Decision Making - Medical Decision Making Was pt. sent in by a medical professional or institution (, PA, MEDICAL LAB TECHNICIAN, urgent care, hospital, or intermediate...) When possible be specific @ -No Did you speak to anyone other than the patient for history (EMS, parent, family, police, friend...)? What history was obtained from this source @ -No Did you review nursing and triage notes (agree or disagree)? Why? @ -I reviewed and agree with nursing and triage notes Were old charts reviewed (outside hosp., previous admission, EMS record, old EKG, old radiological studies, urgent care reports/EKG's, intermediate records)? Report findings @ -No old charts were reviewed Differential Diagnosis (chest pain, altered mental status, abdominal pain women, abdominal pain men, vaginal bleeding, weakness, fever, dyspnea, syncope, headache, dizziness, GI bleed, back pain, seizure, CVA, palpatations, mental health, musculoskeletal)? @ -Differential Abdominal Pain Men: Appendicitis, cholecystitis, diverticulosis, ischemic bowel, pancreatitis, hepatitis, UTI, gastroenteritis, AAA, incarcerated hernia, bowel obstruction, constipation, inflammatory bowel, hepatitis, peptic ulcer disease, splenic infarction, perforated viscus, testicular torsion, this is not meant to be an all-inclusive list EKG interpreted by me (3pts min.). @ -None X-rays interpreted by me (1pt min.). @ -None done CT interpreted by me (1pt min.). @ -None done U/S interpreted by me (1pt. min.). @ -None done What testing was considered but not performed or refused? (CT, X-rays, U/S, labs)? Why? @ -Considered CT brain patient felt improved and declined What meds were considered but not given or refused? Why? @ -None Did you discuss the management of the patient with other professionals (professionals i.e. , PA, MEDICAL LAB TECHNICIAN, lab, RT, psych nurse, social studies teacher, preventive medicine specialist, teacher, commercial loan officer, window caser)? Give summary @ -No Was smoking cessation discussed for >3mins.? @ -No Was critical care preformed (if so, how long)? @ -No Were there social determinants of health that impacted care today? How? (Homelessness, low income, unemployed, alcoholism, drug addiction, transportatio n, low edu. Level, literacy, decrease access to med. care, prison, rehab)? @ -No Was there de-escalation of care discussed even if they declined (Discuss DNR or withdrawal of care, Hospice)? DNR status @ -No What co-morbidities impacted this encounter? (DM, HTN, Smoking, COPD, CAD, Cancer, CVA, ARF, Chemo, Hep., AIDS, mental health diagnosis, sleep apnea, morbid obesity)? @ -Glioblastoma, brain surgery Was patient admitted / discharged? Hospital course, mention meds given and route, prescriptions, significant lab abnormalities, going to OR and other pertinent info. @ -Discharge patient presented for intractable nausea vomiting dehydration. Patient was given 2 and half liters of fluid antiemetics and his Keppra he states he feels great improved he is tolerating oral intake he has no current symptoms. We did discuss CT of his brain given prior history he states he has an upcoming imaging and he has no current headache or any other associated symptoms. Undiagnosed new problem with uncertain prognosis? @ -No Drug Therapy requiring intensive monitoring for toxicity (Heparin, Nitro, Insuli n, Cardizem)? @ -No Were any procedures done? @ -No Diagnosis/symptom? @ -Nausea vomiting dehydration Acute, or Chronic, or Acute on Chronic? @ -Acute Uncomplicated (without systemic symptoms) or Complicated (systemic symptoms)? @ -Complicated Side effects of treatment? @ -No Exacerbation, Progression, or Severe Exacerbation? @ -No Poses a threat to life or bodily function? How? (Chest pain, USA, [place], pneumonia, PE, COPD, DKA, ARF, appy, cholecystitis, CVA, Diverticulitis, Homicidal, Suicidal, threat to staff... and all critical care pts) @ -No - Lab Data Result diagrams: 04/11/24 13:15 04/11/24 13:15 Lab Results 04/11/24 04/11/24 04/11/24 Range/Units 13:15 13:15 13:15 WBC 15.3 H (3.8-10.6) k/uL RBC 5.10 (4.30-5.90) m/uL Hgb 16.8 (13.0-17.5) gm/dL Hct 48.0 (39.0-53.0) % MCV 94.2 (80.0-100.0) fL MCH 32.9 (25.0-35.0) pg MCHC 34.9 (31.0-37.0) g/dL RDW 12.3 (11.5-15.5) % Plt Count 347 (150-450) k/uL MPV 7.1 Neutrophils % 84 % Lymphocytes % 10 % Monocytes % 5 % Eosinophils % 1 % Basophils % 0 % Neutrophils # 12.9 H (1.3-7.7) k/uL Lymphocytes # 1.5 (1.0-4.8) k/uL Monocytes # 0.7 (0-1.0) k/uL Eosinophils # 0.1 (0-0.7) k/uL Basophils # 0.0 (0-0.2) k/uL Sodium 135 L (137-145) mmol/L Potassium 3.5 (3.5-5.1) mmol/L Chloride 96 L (98-107) mmol/L Carbon Dioxide 13 L (22-30) mmol/L Anion Gap 26 mmol/L BUN 15 (9-20) mg/dL Creatinine 1.43 H (0.66-1.25) mg/dL Est GFR (CKD-EPI)AfAm 69 (>60 ml/min/1.73 sqM) Est GFR (CKD-EPI)NonAf 60 (>60 ml/min/1.73 sqM) Glucose 190 H (74-99) mg/dL Calcium 10.6 H (8.4-10.2) mg/dL Magnesium 1.9 (1.6-2.3) mg/dL Total Bilirubin 1.4 H (0.2-1.3) mg/dL AST 42 (17-59) U/L ALT 36 (4-49) U/L Alkaline Phosphatase 110 (38-126) U/L Total Protein 8.4 H (6.3-8.2) g/dL Albumin 5.3 H (3.5-5.0) g/dL Influenza Type A (PCR) Not Detected (Not Detectd) Influenza Type B (PCR) Not Detected (Not Detectd) RSV (PCR) Not Detected (Not Detectd) SARS-CoV-2 (PCR) Not Detected (Not Detectd) Disposition Clinical Impression: Nausea and vomiting Disposition: HOME SELF-CARE Condition: Stable Instructions (If sedation given, give patient instructions): Acute Nausea and Vomiting (ED) Additional Instructions: Please return to the Emergency Department if symptoms worsen or any other concerns. Is patient prescribed a controlled substance at d/c from ED?: No Referrals: Lorena Molina MD [Primary Care Provider] - 1-2 days Time of Disposition: 14:57
[2024-04-11] MEDS: HYDROmorphone 0.5 MG/0.5 ML SYRINGE IVP STA (15:25)
[2024-04-11] MEDS: ONDANSETRON 4 MG/2 ML VIAL IVP STA (15:26)
[2024-04-11 15:30] VITALS: BP 164/79; PULSE 83; RESP 16; TEMP 99.2
== END 2024-04-11 15:33 | disposition home or self-care (01) ==
LOC: EC 12:36
DX: E86.0 Dehydration (principal); R11.2 Nausea with vomiting, unspecified; Z85.841 Personal history of malignant neoplasm of brain; Z11.52 Encounter for screening for COVID-19
CPT/HCPCS: 36415; 80053; 83735; 85025; 87636; 99284; 96365; 96375; 96361; J1200; J2765; J2405; J1953; J1885; J1171

== ENCOUNTER 2024-08-28 05:05 | Emergency (ER) | payer BC ==
[2024-08-28 05:11] VITALS: TEMP 97.7
[2024-08-28 05:25] LABS: Glucose,Whole Blood 141 mg/dL (70-110)
--- NOTE | 2024-08-28 05:26 | ED ---
Seizure HPI - General Chief Complaint: Seizure Stated Complaint: vomitting Time Seen by Provider: 08/28/24 05:11 Source: patient Mode of arrival: EMS - History of Present Illness Initial Comments: This patient is 44-year-old man with history of previous glioblastoma treated 4 years ago. He presents with complaint that he is having intractable vomiting and therefore was unable to keep down his medication. He then had a seizure and struck the right side of his head. The patient states that he gets episodes of intractable vomiting. He does take home medication but states that it has not been working. He takes Reglan. The patient states that he also takes Keppra for the seizures but he has not been able to keep anything down. Patient denies having fever or chills. No head or neck pain. Denies neurologic symptoms. MD Complaint: seizure Onset/Timin -: days(s) Description of Episode: loss of consciousness, tonic-clonic movement Trauma: Yes (Right scalp contusion and laceration) Seizure History: known seizure disorder Place: home Associated Symptoms: denies other symptoms Treatments Prior to Arrival: none - Related Data Home Medications Medication Instructions Recorded Confirmed levETIRAcetam [Keppra] 2,000 mg PO Q12HR 12/23/23 12/23/23 Previous Rx's Medication Instructions Recorded Metoclopramide [Reglan] 10 mg PO ACHS #12 tab 01/17/24 Allergies Allergy/AdvReac Type Severity Reaction Status Date / Time No Known Allergies Allergy Verified 09/11/24 21:13 Review of Systems ROS Statement: Those systems with pertinent positive or pertinent negative responses have been documented in the HPI. ROS Other: All systems not noted in ROS Statement are negative. Constitutional: Denies: fever, chills Eyes: Denies: vision change Respiratory: Denies: cough, dyspnea Cardiovascular: Denies: chest pain, palpitations, edema Gastrointestinal: Reports: nausea, vomiting. 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 Small underlying hematoma. No palpable deformity.) Eye exam: Present: normal appearance. Absent: scleral icterus, conjunctival injection ENT exam: Present: normal oropharynx Neck exam: Present: normal inspection Respiratory exam: Present: normal lung sounds bilaterally. Absent: respiratory distress, wheezes, rales, rhonchi, stridor, accessory muscle use Cardiovascular Exam: Present: regular rate, normal rhythm, normal heart sounds. Absent: systolic murmur, diastolic murmur, rubs, gallop GI/Abdominal exam: Present: soft. Absent: distended, tenderness, guarding, rebound, rigid Extremities exam: Present: normal inspection, normal capillary refill. Absent: pedal edema, calf tenderness Back exam: Present: normal inspection. Absent: CVA tenderness (R), CVA tenderness (L) Neurological exam: Present: alert, oriented X3, CN II-XII intact. Absent: motor sensory deficit Skin exam: Present: warm, dry, intact, normal color. Absent: rash Course Vital Signs 08/28/24 08/28/24 08/28/24 05:08 06:07 08:20 Temperature 97.7 F Pulse Rate 100 84 78 Respiratory 24 18 17 Rate Blood Pressure 160/98 148/95 149/93 O2 Sat by Pulse 100 99 98 Oximetry Medical Decision Making - Medical Decision Making The patient had chest x-ray that I interpreted as negative for acute infiltrate, pneumothorax, congestive heart failure The patient had CT of the brain that I interpreted as negative for acute intracranial hemorrhage, mass effect, midline shift. Was pt. sent in by a medical professional or institution (, ELDER, WARD CLERK, urgent care, hospital, or usp...) When possible be specific @ -[No] Did you speak to anyone other than the patient for history (EMS, parent, family, police, friend...)? What history was obtained from this source @ -[No] Did you review nursing and triage notes (agree or disagree)? Why? @ -[I reviewed and agree with nursing and triage notes] Were old charts reviewed (outside hosp., previous admission, EMS record, old EKG, old radiological studies, urgent care reports/EKG's, usp records)? Report findings @ -[No old charts were reviewed] Differential Diagnosis (chest pain, altered mental status, abdominal pain women, abdominal pain men, vaginal bleeding, weakness, fever, dyspnea, syncope, headache, dizziness, GI bleed, back pain, seizure, CVA, palpatations, mental health, musculoskeletal)? @ -[not applicable] EKG interpreted by me (3pts min.). @ -[As above] X-rays interpreted by me (1pt min.). @ -[I interpreted as above CT interpreted by me (1pt min.). @ -[I interpreted as above U/S interpreted by me (1pt. min.). @ -[None done] What testing was considered but not performed or refused? (CT, X-rays, U/S, labs)? Why? @ -[None] What meds were considered but not given or refused? Why? @ -[None] Did you discuss the management of the patient with other professionals (sis arita i.e. , PA, WARD CLERK, lab, RT, psych nurse, rn social services, real estate lawyer, teacher, contact officer, watch caser)? Give summary @ -[No] Was smoking cessation discussed for >3mins.? @ -[No] Was critical care preformed (if so, how long)? @ -[No] Were there social determinants of health that impacted care today? How? (Homelessness, low income, unemployed, alcoholism, drug addiction, transportation, low edu. Level, literacy, decrease access to med. care, correction, rehab)? @ -[No] Was there de-escalation of care discussed even if they declined (Discuss DNR or withdrawal of care, Hospice)? DNR status @ -[No] What co-morbidities impacted this encounter? (DM, HTN, Smoking, COPD, CAD, Cancer, CVA, ARF, Chemo, Hep., AIDS, mental health diagnosis, sleep apnea, morbid obesity)? @ -[History of brain tumor. Seizure disorder. Was patient admitted / discharged? Hospital course, mention meds given and route , prescriptions, significant lab abnormalities, going to OR and other pertinent info. @ -[The patient arrives here for inability to tolerate oral intake and having intractable nausea and vomiting. He also had a seizure. The patient is given fluids and medication which did improve his nausea and vomiting. The patient also given dose of Keppra as he has not been able to tolerate his medication. The patient then was feeling better and wanted to try going home. We discussed appropriate further care and follow-up as well as return parameters. Undiagnosed new problem with uncertain prognosis? @ -[No] Drug Therapy requiring intensive monitoring for toxicity (Heparin, Nitro, Insulin, Cardizem)? @ -[No] Were any procedures done? @ -[No] Diagnosis/symptom? @ -[Acute nausea and vomiting Acute tonic-clonic seizure in patient with seizure disorder Acute, or Chronic, or Acute on Chronic? @ -Acute on chronic Uncomplicated (without systemic symptoms) or Complicated (systemic symptoms)? @ -Uncomplicated Side effects of treatment? @ -[No] Exacerbation, Progression, or Severe Exacerbation? @ -[No] Poses a threat to life or bodily function? How? (Chest pain, USA, [place], pneumonia, PE, COPD, DKA, ARF, appy, cholecystitis, CVA, Diverticulitis, Homicidal, Suicidal, threat to staff... and all critical care pts) @ -[No] All treatments are based on ideal body weight as in ED triage - Lab Data Result diagrams: 08/28/24 05:24 08/28/24 05:24 Lab Results 08/28/24 08/28/24 08/28/24 Range/Units 05:23 05:24 05:24 WBC 14.13 H (4.50-10.00) 10*3/uL RBC 4.94 (4.40-5.60) 10*6/uL Hgb 16.5 (13.0-17.0) g/dL Hct 45.3 (39.6-50.0) % MCV 91.7 (80.0-97.0) fL MCH 33.4 H (27.0-32.0) pg MCHC 36.4 (32.0-37.0) g/dL Plt Count 209 (140-440) 10*3/uL MPV 9.6 (9.5-12.2) fL Immature Gran % (Auto) 0.5 % Neutrophils % 86.4 % Lymphocytes % 6.4 % Monocytes % 6.5 % Eosinophils % 0.0 % Basophils % 0.2 % Immature Gran # 0.07 H (0.00-0.04) 10*3/uL Neutrophils # 12.21 H (1.80-7.70) 10*3/uL Lymphocytes # 0.90 (0.90-5.00) 10*3/uL Monocytes # 0.92 (0.20-1.00) 10*3/uL Eosinophils # 0.00 L (0.04-0.35) 10*3/uL Basophils # 0.03 (0.00-0.10) 10*3/uL Sodium 136 L (137-145) mmol/L Potassium 3.5 (3.5-5.1) mmol/L Chloride 101 (98-107) mmol/L Carbon Dioxide 18 L (22-30) mmol/L Anion Gap 17 mmol/L BUN 10 (9-20) mg/dL Creatinine 1.07 (0.66-1.25) mg/dL Est GFR (CKD-EPI)AfAm >90 (>60 ml/min/1.73 sqM) Est GFR (CKD-EPI)NonAf 85 (>60 ml/min/1.73 sqM) Glucose 137 H (74-99) mg/dL POC Glucose (mg/dL) 141 H (70-110) mg/dL POC Glu Industrial Sociologist ID Ana Steiner Lactic Ac Sepsis Rflx Plasma Lactic Acid Celestine (0.7-2.0) mmol/L Calcium 10.4 H (8.4-10.2) mg/dL Total Bilirubin 2.0 H (0.2-1.3) mg/dL AST 62 H (17-59) U/L ALT 44 (4-49) U/L Alkaline Phosphatase 81 (38-126) U/L Troponin I (0.000-0.034) ng/mL Total Protein 7.8 (6.3-8.2) g/dL Albumin 5.1 H (3.5-5.0) g/dL Amylase 63 (30-110) U/L Lipase 123 (23-300) U/L Levetiracetam (3.0-60.0) ug/mL Serum Alcohol <10 mg/dL 08/28/24 08/28/24 08/28/24 Range/Units 05:24 05:24 05:24 WBC (4.50-10.00) 10*3/uL RBC (4.40-5.60) 10*6/uL Hgb (13.0-17.0) g/dL Hct (39.6-50.0) % MCV (80.0-97.0) fL MCH (27.0-32.0) pg MCHC (32.0-37.0) g/dL Plt Count (140-440) 10*3/uL MPV (9.5-12.2) fL Immature Gran % (Auto) % Neutrophils % % Lymphocytes % % Monocytes % % Eosinophils % % Basophils % % Immature Gran # (0.00-0.04) 10*3/uL Neutrophils # (1.80-7.70) 10*3/uL Lymphocytes # (0.90-5.00) 10*3/uL Monocytes # (0.20-1.00) 10*3/uL Eosinophils # (0.04-0.35) 10*3/uL Basophils # (0.00-0.10) 10*3/uL Sodium (137-145) mmol/L Potassium (3.5-5.1) mmol/L Chloride (98-107) mmol/L Carbon Dioxide (22-30) mmol/L Anion Gap mmol/L BUN (9-20) mg/dL Creatinine (0.66-1.25) mg/dL Est GFR (CKD-EPI)AfAm (>60 ml/min/1.73 sqM) Est GFR (CKD-EPI)NonAf (>60 ml/min/1.73 sqM) Glucose (74-99) mg/dL POC Glucose (mg/dL) (70-110) mg/dL POC Glu Industrial Sociologist ID Lactic Ac Sepsis Rflx Plasma Lactic Acid Celestine 2.7 H* (0.7-2.0) mmol/L Calcium (8.4-10.2) mg/dL Total Bilirubin (0.2-1.3) mg/dL AST (17-59) U/L ALT (4-49) U/L Alkaline Phosphatase (38-126) U/L Troponin I 0.015 (0.000-0.034) ng/mL Total Protein (6.3-8.2) g/dL Albumin (3.5-5.0) g/dL Amylase (30-110) U/L Lipase (23-300) U/L Levetiracetam 3.2 (3.0-60.0) ug/mL Serum Alcohol mg/dL 08/28/ Range/Units 06:59 WBC (4.50-10.00) 10*3/uL RBC (4.40-5.60) 10*6/uL Hgb (13.0-17.0) g/dL Hct (39.6-50.0) % MCV (80.0-97.0) fL MCH (27.0-32.0) pg MCHC (32.0-37.0) g/dL Plt Count (140-440) 10*3/uL MPV (9.5-12.2) fL Immature Gran % (Auto) % Neutrophils % % Lymphocytes % % Monocytes % % Eosinophils % % Basophils % % Immature Gran # (0.00-0.04) 10*3/uL Neutrophils # (1.80-7.70) 10*3/uL Lymphocytes # (0.90-5.00) 10*3/uL Monocytes # (0.20-1.00) 10*3/uL Eosinophils # (0.04-0.35) 10*3/uL Basophils # (0.00-0.10) 10*3/uL Sodium (137-145) mmol/L Potassium (3.5-5.1) mmol/L Chloride (98-107) mmol/L Carbon Dioxide (22-30) mmol/L Anion Gap mmol/L BUN (9-20) mg/dL Creatinine (0.66-1.25) mg/dL Est GFR (CKD-EPI)AfAm (>60 ml/min/1.73 sqM) Est GFR (CKD-EPI)NonAf (>60 ml/min/1.73 sqM) Glucose (74-99) mg/dL POC Glucose (mg/dL) (70-110) mg/dL POC Glu Industrial Sociologist ID Lactic Ac Sepsis Rflx Y Plasma Lactic Acid Celestine (0.7-2.0) mmol/L Calcium (8.4-10.2) mg/dL Total Bilirubin (0.2-1.3) mg/dL AST (17-59) U/L ALT (4-49) U/L Alkaline Phosphatase (38-126) U/L Troponin I (0.000-0.034) ng/mL Total Protein (6.3-8.2) g/dL Albumin (3.5-5.0) g/dL Amylase (30-110) U/L Lipase (23-300) U/L Levetiracetam (3.0-60.0) ug/mL Serum Alcohol mg/dL - EKG Data -: EKG Interpreted by [facility] EKG shows normal: sinus rhythm, axis (Normal), intervals (Normal), QRS complexes (Normal), ST-T waves (Normal) Rate: normal (Rate 77 bpm) Interpretation: normal EKG Disposition Clinical Impression: Generalized seizure, Nausea and vomiting Disposition: HOME SELF-CARE Condition: Good Instructions (If sedation given, give patient instructions): Seizure/Epilepsy Discharge Instructions & Follow-Up Is patient prescribed a controlled substance at d/c from ED?: No Referrals: Lorena Molina MD [Primary Care Provider] - 1-2 days
[2024-08-28] MEDS: SODIUM CHLORIDE 0.9% 500 ML 500 ML IV STA (05:27)
[2024-08-28] MEDS: METOCLOPRAMIDE 5 MG/ML 2 ML VIAL IVP STA ×2 (05:28→07:18)
[2024-08-28 05:36] LABS: Basophils # (A) 0.03 10*3/uL (0.00-0.10); Basophils % (A) 0.2 %; HCT 45.3 % (39.6-50.0); HGB 16.5 g/dL (13.0-17.0); Lymphocytes % (A) 6.4 %; MCH 33.4 pg (27.0-32.0); MCHC 36.4 g/dL (32.0-37.0); MCV 91.7 fL (80.0-97.0); Mean Platelet Volume 9.6 fL (9.5-12.2); Monocytes # (A) 0.92 10*3/uL (0.20-1.00); Monocytes % (A) 6.5 %; Neutrophils # (A) 12.21 10*3/uL (1.80-7.70); Neutrophils % (A) 86.4 %; Platelet Count 209 10*3/uL (140-440); RBC 4.94 10*6/uL (4.40-5.60); RDW 12.7 % (11.5-14.5); WBC 14.13 10*3/uL (4.50-10.00)
[2024-08-28] MEDS: levETIRAcetam IV 2,000 MG in SODIUM CHLORIDE 0.9% 250 ML IVPB ONE (05:37)
[2024-08-28 05:50] LABS: ALT 44 U/L (4-49); AST 62 U/L (17-59); African American GFR (CKD) >90 (>60 ml/min/1.73 sqM); Albumin 5.1 g/dL (3.5-5.0); Alcohol <10 mg/dL; Alkaline Phosphatase 81 U/L (38-126); Amylase 63 U/L (30-110); Anion Gap 17 mmol/L; Blood Urea Nitrogen 10 mg/dL (9-20); Calcium 10.4 mg/dL (8.4-10.2); Carbon Dioxide 18 mmol/L (22-30); Chloride 101 mmol/L (98-107); Glucose 137 mg/dL (74-99); Lipase 123 U/L (23-300); Non-African American GFR(CKD) 85 (>60 ml/min/1.73 sqM); Sodium 136 mmol/L (137-145); Total Protein 7.8 g/dL (6.3-8.2)
[2024-08-28] MEDS: DIPH,PERTUS(ACELL)TETVAC-LF 0.5 ML VIAL IM ONE (06:03)
[2024-08-28 06:33] LABS: Potassium 3.5 mmol/L (3.5-5.1)
[2024-08-28] MEDS: LIDOCAINE 1% INJ 10MG/ML (20 ML MDV) SQ ONE (06:56)
--- NOTE | 2024-08-28 07:16 | CT ---
EXAMINATION TYPE: CT brain cspine wo con DATE OF EXAM: 08/28/2024 6:01 AM COMPARISON: 07/11/2023 CLINICAL INDICATION: Male, 44 years old with history of fall injury, , pain TECHNIQUE: CT of the brain is performed utilizing 3 mm thick sections through the posterior fossa and 3 mm thick sections through the remaining calvarium. Study is performed within 24 hours of arrival to the hospital. Contrast used: mL of , (none if empty) CT DLP: 1554.6 mGycm, Automated exposure control for dose reduction was used. FINDINGS: No abnormal hyperdensity is present to suggest an acute intracranial hemorrhage. No mass lesion is evident. Prior left temporal craniotomy. Postsurgical changes within the left front al lobe. 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 Previous measurement 1.1 cm. There is ex vacuo effect on the left lateral ventricle. A shunt catheter is present in the right frontal region with the tip in the right lateral ventricle. No acute infarcts are evident. Ventricles and sulci are otherwise appropriate for the patient age. Paranasal sinuses and mastoid air cells within the [id number] are clear. IMPRESSIONS: 1. No acute posttraumatic changes. Follow-up can be performed as clinically indicated. 2. Stable left subdural hygroma. 3. Postsurgical changes left frontal lobe. 4. No suspicious changes for hydrocephalus. CT cervical spine. COMPARISON: None TECHNIQUE: CT of the cervical spine is performed in the axial plane at 2 mm thick sections. Reconstr ucted images in the coronal, and sagittal plane are reviewed on the computer. FINDINGS: No acute fractures are evident. Vertebral body alignment is normal. There is disc space narrowing present at C5-6. Posterior endplate spurring centrally is present witho ut spinal stenosis C5-6. Vertebral body heights are preserved. No spinal canal stenosis is evident. No neural foraminal stenosis is evident. IMPRESSION: 1. No acute posttraumatic changes cervical spine. 2. Degenerative disc changes and posterior endplate spurring C5-6 [facility], , 08/28/2024 7:14 AM
[2024-08-28] MEDS: SODIUM CHLORIDE 0.9% 1,000 ML IV ONE (07:18)
[2024-08-28] MEDS: MORPHINE SULFATE 4 MG/ML SYRINGE IV STA (07:20)
--- NOTE | 2024-08-28 07:20 | XR ---
EXAMINATION TYPE: XR chest 1V portable DATE OF EXAM: 08/28/2024 6:04 AM COMPARISON: None. CLINICAL INDICATION: Male, 44 years old with history of fall injury, TECHNIQUE: XR chest 1V portable view(s) obtained. FINDINGS: The heart size is normal. The pulmonary vasculature is normal. The lungs are clear. Catheter overlying the right chest. IMPRESSION: 1. No acute pulmonary process. [facility], , 08/28/2024 7:18 AM
[2024-08-28 08:32] VITALS: BP 149/93; PULSE 78; RESP 17
== END 2024-08-28 08:31 | disposition home or self-care (01) ==
LOC: EC 05:05
DX: G40.409 Other generalized epilepsy and epileptic syndromes, not intractable, without status epilepticus (principal); S00.03XA Contusion of scalp, initial encounter; R11.2 Nausea with vomiting, unspecified; Z23 Encounter for immunization; W22.8XXA Striking against or struck by other objects, initial encounter; Y92.009 Unspecified place in unspecified non-institutional (private) residence as the place of occurrence of the external cause
CPT/HCPCS: 99285; 96365; 96375 ×2; 96376; 96361; 90471; 36415; 93005; 80053; 80177; 82150; 83605; 83690; 84484; 85025; 80320; 71045; 72125; 70450; 90715; J2270; J2765; J2003; J1953

== ENCOUNTER 2024-09-11 20:48 | Emergency (ER) | payer BC ==
[2024-09-11 21:14] VITALS: TEMP 97.9
--- NOTE | 2024-09-11 21:31 | ED ---
General Adult HPI - General Chief complaint: Nausea/Vomiting/Diarrhea Stated complaint: NVD Time Seen by Provider: 09/11/24 21:12 Source: patient Mode of arrival: ambulatory Limitations: no limitations - History of Present Illness Initial comments: Patient is a 44-year-old gentleman with past medical history glioblastoma presenting today for nausea and vomiting. Patient states this happens some "all the time". He states this episodes is no different from prior episodes. Today nausea vomiting started around 2 PM. He has not been able to keep down his medications and states he is due for his Keppra. States that his last MRI of his brain was about 4 weeks ago and he was told that the glioblastoma are not currently present. He denies additional new symptoms including dizziness, changes in vision, headache, numbness, focal weakness, slurred speech, fever, chest pain, shortness of breath, abdominal pain. Patient had a normal soft stool earlier today. No melena or hematochezia. Denies hematemesis or bilious emesis. States that no medications usually help his symptoms. He has not been able to keep down even water today. - Related Data Home Medications Medication Instructions Recorded Confirmed levETIRAcetam [Keppra] 2,000 mg PO Q12HR 12/23/23 12/23/23 Previous Rx's Medication Instructions Recorded Metoclopramide [Reglan] 10 mg PO ACHS #12 tab 01/17/24 Allergies Allergy/AdvReac Type Severity Reaction Status Date / Time No Known Allergies Allergy Verified 09/11/24 21:13 Review of Systems ROS Statement: Those systems with pertinent positive or pertinent negative responses have been documented in the HPI. ROS Other: All systems not noted in ROS Statement are negative. 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, anxiety, panic attacks History of Any Multi-Drug Resistant Organisms: None Reported Past Surgical History: Orthopedic Surgery, Ventriculoperitoneal Shunt Additional Past Surgical History / Comment(s): bilateral hand surgeries, 5 brain surgeries Past Psychological History: No Psychological Hx Reported Smoking Status: Never smoker Past Alcohol Use History: Occasional Past Drug Use History: Marijuana General Exam - General Exam Comments Initial Comments: PE: CONSTITUTIONAL: No apparent distress, well appearing SKIN: Warm, dry, no jaundice, hives or petechiae EYES: Pupils are equally round, extraocular movements intact without nystagmus, clear conjunctiva, non-icteric sclera HENT: Normocephalic, atraumatic, dry mucus membranes, oropharynx clear without exudates NECK: , Full range of motion, normal appearance PULMONARY: Clear to auscultation without wheezes, rhonchi, or rales, normal excursion, no accessory muscle use and no stridor CARDIOVASCULAR: Regular rate, rhythm, normal S1 and S2. No appreciated murmurs, rubs or gallops. Strong radial pulses with intact distal perfusion. No lower extremity edema GASTROINTESTINAL: Soft, active bowel sounds throughout, non-tender, non- distended, no palpable masses, no rebound or guarding. No hepatosplenomegaly GENITOURINARY: MUSCULOSKELETAL: Extremities have no gross deformity, no edema, redness, or swelling. No calf swelling NEUROLOGIC:_a/o x 3, GCS 15, normal mentation and speech. Moves all extremities x 4 without motor or sensory deficit PSYCHIATRIC:_normal mood and affect, thought process is clear and linear Limitations: no limitations Course Vital Signs 09/11/24 09/11/24 21:09 22:42 Temperature 97.9 F Pulse Rate 122 H 97 Respiratory 20 18 Rate Blood Pressure 136/91 145/94 O2 Sat by Pulse 97 98 Oximetry EKG Findings - EKG Comments: EKG Findings:: Sinus tachycardia, rate 111 bpm, intervals within acceptable limits, normal axis, no significant ST elevations or depressions, no STEMI or arrythmia Medical Decision Making - Medical Decision Making Was pt. sent in by a medical professional or institution (, ELDER, REGULATORY ANALYST, urgent care, hospital, or skilled nursing...) When possible be specific @ -No Did you speak to anyone other than the patient for history (EMS, parent, family, police, friend...)? What history was obtained from this source @ -No Did you review nursing and triage notes (agree or disagree)? Why? @ -I reviewed and agree with nursing and triage notes Were old charts reviewed (outside hosp., previous admission, EMS record, old EKG, old radiological studies, urgent care reports/EKG's, skilled nursing records)? Report findings @ -Medical records reviewed-Reviewed ER visit from 08/28/2024, note reviewed. Patient had presented at the time for intractable vomiting, which caused him to have a seizure due to not being able take his medications. Reviewed CT brain and C-spine performed on that visit, showed no acute posttraumatic changes, did note stable left subdural hygroma, no suspicious changes or hydrocephalus Differential Diagnosis (chest pain, altered mental status, abdominal pain women, abdominal pain men, vaginal bleeding, weakness, fever, dyspnea, syncope, headache, dizziness, GI bleed, back pain, seizure, CVA, palpatations, mental health, musculoskeletal)? @Differential diagnosis range broad over top considerations include cyclic vomiting syndrome, pancreatitis, gastroenteritis, cholecystitis, choledocholithiasis, bowel obstruction, intracranial tumor, medication side effect this is not an all inclusive list EKG interpreted by me (3pts min.). @ -As above X-rays interpreted by me (1pt min.). @ -None done CT interpreted by me (1pt min.). @ -None done U/S interpreted by me (1pt. min.). @ -None done What testing was considered but not performed or refused? (CT, X-rays, U/S, labs)? Why? @ -Did consider CT brain, however patient had CT performed about 2 weeks ago that showed stable findings, patient similar symptoms of nausea vomiting are si milar to prior episodes without no focal deficits or headache therefore do not feel further imaging is indicated during today's visit Considered ultrasound RUQ however appears pt's LFTs are actually improved from last visit, pt has no abdominal pain and had benign abdominal exam What meds were considered but not given or refused? Why? @ -None Did you discuss the management of the patient with other professionals (professionals i.e. , PA, REGULATORY ANALYST, lab, RT, psych nurse, social and political studies professor, tearoom hostess, teacher, special police officer, director of casework)? Give summary @ -No Was smoking cessation discussed for >3mins.? @ -No Was critical care preformed (if so, how long)? @ -No Were there social determinants of health that impacted care today? How? (Homelessness, low income, unemployed, alcoholism, drug addiction, tra nsportation, low edu. Level, literacy, decrease access to med. care, senior living, rehab)? @ -No Was there de-escalation of care discussed even if they declined (Discuss DNR or withdrawal of care, Hospice)? @ -No What co-morbidities impacted this encounter? (DM, HTN, Smoking, COPD, CAD, Cancer, CVA, ARF, Chemo, Hep., AIDS, mental health diagnosis, sleep apnea, morbid obesity)? @Glioblastoma Was patient admitted / discharged? Hospital course, mention meds given and route, prescriptions, significant lab abnormalities, going to OR and other pertinent info. Discharged -this is a pleasant 44-year-old gentleman history glioblastoma, seizures on Keppra presenting today for intractable nausea and vomiting. Patient mildly tachycardic on arrival otherwise vital signs stable. Patient denies additional complaints. He will be treated with Reglan, Zofran, Benadryl, fluids will be given home 2 g Keppra IV and will reassess. Basic labs will be obtained. On review of labs, hemoglobin is mildly hemoconcentrated at 18, neutrophil slightly elevated 7.93 suspect this is due to vomiting, chloride 94, T. bili 1.4, this is down from prior to visit on 08/28/2024 when it was 2, AST/ALT 86/65, patient denies abdominal pain and had no right upper quadrant pain on exam, lipase slightly later 368 patient again denies abdominal pain. Updated him to these findings, he states his symptoms have resolved and he feels ready for discharge home.. Patient is been able to tolerate p.o. intake. We discussed signs and symptoms to monitor for warranting return to the ER such as return of symptoms, inability to keep down his medications, change from his usual symptoms of nausea and vomiting,. In my medical judgment there is currently no evidence of an immediate life- threatening or surgical condition. Discharge is therefore indicated at this time. Discharge treatment instructions, follow up instructions, and appropriate emergency department return precautions were discussed with the patient and/or medical decision maker. Patient and/or medical decision maker expressed understanding of and agreed with the treatment plan, follow up instructions, and emergency department return precaution. All patient's and/or medical decision maker's questions were answered. The patient was advised that a small risk still exists that a serious condition could develop and was therefore instructed to return to the ED for any changes in symptoms, persistent symptoms, inability to obtain proper follow-up or for any further concerns. Patient received verbal and written instructions for this condition. Undiagnosed new problem with uncertain prognosis? @ -No Drug Therapy requiring intensive monitoring for toxicity (Heparin, Nitro, Insulin, Cardizem)? @ -No Were any procedures done? @ -No Diagnosis/symptom? @Non-intractable nausea and vomiting Acute, or Chronic, or Acute on Chronic? @Acute Uncomplicated (without systemic symptoms) or Complicated (systemic symptoms)? @Complicated Side effects of treatment? @ -No Exacerbation, Progression, or Severe Exacerbation? @ -No Poses a threat to life or bodily function? How? (Chest pain, [place], [place], pneumonia, PE, COPD, DKA, ARF, appy, cholecystitis, CVA, Diverticulitis, Homicidal, Suicidal, threat to staff... and all critical care pts) @ -No - Lab Data Result diagrams: 09/11/24 21:33 09/11/24 21:33 Lab Results 09/11/24 09/11/24 09/11/24 Range/Units 21:33 21:33 21:33 WBC 9.77 (4.50-10.00) 10*3/uL RBC 5.40 (4.40-5.60) 10*6/uL Hgb 18.0 H (13.0-17.0) g/dL Hct 49.9 (39.6-50.0) % MCV 92.4 (80.0-97.0) fL MCH 33.3 H (27.0-32.0) pg MCHC 36.1 (32.0-37.0) g/dL Plt Count 290 (140-440) 10*3/uL MPV 9.0 L (9.5-12.2) fL Immature Gran % (Auto) 0.4 % Neutrophils % 81.2 % Lymphocytes % 13.4 % Monocytes % 4.6 % Eosinophils % 0.0 % Basophils % 0.4 % Immature Gran # 0.04 (0.00-0.04) 10*3/uL Neutrophils # 7.93 H (1.80-7.70) 10*3/uL Lymphocytes # 1.31 (0.90-5.00) 10*3/uL Monocytes # 0.45 (0.20-1.00) 10*3/uL Eosinophils # 0.00 L (0.04-0.35) 10*3/uL Basophils # 0.04 (0.00-0.10) 10*3/uL Sodium 143 (137-145) mmol/L Potassium 4.1 (3.5-5.1) mmol/L Chloride 94 L (98-107) mmol/L Carbon Dioxide 24 (22-30) mmol/L Anion Gap 25 mmol/L BUN 11 (9-20) mg/dL Creatinine 1.09 (0.66-1.25) mg/dL Est GFR (CKD-EPI)AfAm >90 (>60 ml/min/1.73 sqM) Est GFR (CKD-EPI)NonAf 82 (>60 ml/min/1.73 sqM) Glucose 100 H (74-99) mg/dL Calcium 10.1 (8.4-10.2) mg/dL Total Bilirubin 1.5 H (0.2-1.3) mg/dL AST 86 H (17-59) U/L ALT 65 H (4-49) U/L Alkaline Phosphatase 96 (38-126) U/L Total Protein 8.5 H (6.3-8.2) g/dL Albumin 5.5 H (3.5-5.0) g/dL Lipase 368 H (23-300) U/L Urine Color Yellow Urine Appearance Cloudy (Clear) Urine pH 6.0 (5.0-8.0) Ur Specific [place] 1.032 (1.001-1.035) Urine Protein 2+ H (Negative) Urine Glucose (UA) Trace H (Negative) Urine Ketones 2+ H (Negative) Urine Blood Negative (Negative) Urine Nitrite Negative (Negative) Urine Bilirubin Negative (Negative) Urine Urobilinogen <2.0 (<2.0) mg/dL Ur Leukocyte Esterase Negative (Negative) Urine RBC 2 (0-5) /hpf Urine WBC 1 (0-5) /hpf Hyaline Casts 21 H (0-2) /lpf Urine Mucus Many H (None) /hpf Disposition Clinical Impression: Dehydration, Nausea and vomiting Disposition: HOME SELF-CARE Condition: Good Instructions (If sedation given, give patient instructions): Acute Nausea and Vomiting (ED) Additional Instructions: Every disease is a spectrum and a small chance still exists that a serious condition could develop, for this reason, please monitor yourself closely for new, changing or worsening symptoms, return of symptoms, severe headache, changes in vision, slurred speech, abdominal pain fever, inability to tolerate/keep down fluids or your medications, inability to follow up with outpatient providers as instructed and should you experience these symptoms or should you have any further concerns for your wellbeing please return to the ED or call 911 immediately. Please be sure to keep drinking plenty of clear noncaffeinated fluids such as Pedialyte, water, Gatorade. PLEASE call your primary care physician as soon as possible to arrange / discuss plan for followup appointment. Appointment in the next 1-3 days is strongly encouraged if possible. PLEASE let us know here before you leave if there is anything further we can do to be of any assistance. Take care and feel Better! Is patient prescribed a controlled substance at d/c from ED?: No Referrals: Lorena Molina MD [Primary Care Provider] - 1-2 days
[2024-09-11] MEDS: diphenhydrAMINE 50 MG/ML 1 ML VIAL IVP STA (22:03)
[2024-09-11] MEDS: SODIUM CHLORIDE 0.9% 1,000 ML IV STA (22:03)
[2024-09-11 22:04] LABS: Basophils # (A) 0.04 10*3/uL (0.00-0.10); Basophils % (A) 0.4 %; HCT 49.9 % (39.6-50.0); Lymphocytes # (A) 1.31 10*3/uL (0.90-5.00); Lymphocytes % (A) 13.4 %; MCH 33.3 pg (27.0-32.0); MCHC 36.1 g/dL (32.0-37.0); MCV 92.4 fL (80.0-97.0); Monocytes # (A) 0.45 10*3/uL (0.20-1.00); Monocytes % (A) 4.6 %; Neutrophils # (A) 7.93 10*3/uL (1.80-7.70); Neutrophils % (A) 81.2 %; Platelet Count 290 10*3/uL (140-440); RDW 12.7 % (11.5-14.5); WBC 9.77 10*3/uL (4.50-10.00)
[2024-09-11] MEDS: ONDANSETRON 4 MG/2 ML VIAL IVP STA (22:04)
[2024-09-11] MEDS: levETIRAcetam IV 500 MG/5 ML VIAL IVP STA (22:04)
[2024-09-11] MEDS: METOCLOPRAMIDE 5 MG/ML 2 ML VIAL IVP STA (22:04)
[2024-09-11 22:12] LABS: Appearance,Urine Cloudy (Clear); Bilirubin,Urine Negative (Negative); Blood,Urine Negative (Negative); Color,Urine Yellow; Glucose,Urine (UA) Trace (Negative); Hyaline Casts,Urine 21 /lpf (0-2); Ketones,Urine 2+ (Negative); Leukocyte Esterase,Urine Negative (Negative); Mucus,Urine Many /hpf; Nitrite,Urine Negative (Negative); Protein,Urine 2+ (Negative); RBC,Urine 2 /hpf (0-5); Specific Gravity,Urine 1.032 (1.001-1.035); Urobilinogen,Urine <2.0 mg/dL (<2.0); WBC,Urine 1 /hpf (0-5)
[2024-09-11] MEDS: levETIRAcetam IV 2,000 MG in SODIUM CHLORIDE 0.9% 250 ML IVPB STA (22:39)
[2024-09-11 22:43] VITALS: RESP 18
[2024-09-11 22:51] LABS: ALT 65 U/L (4-49); AST 86 U/L (17-59); African American GFR (CKD) >90 (>60 ml/min/1.73 sqM); Albumin 5.5 g/dL (3.5-5.0); Alkaline Phosphatase 96 U/L (38-126); Anion Gap 25 mmol/L; Blood Urea Nitrogen 11 mg/dL (9-20); Calcium 10.1 mg/dL (8.4-10.2); Carbon Dioxide 24 mmol/L (22-30); Chloride 94 mmol/L (98-107); Glucose 100 mg/dL (74-99); Lipase 368 U/L (23-300); Non-African American GFR(CKD) 82 (>60 ml/min/1.73 sqM); Potassium 4.1 mmol/L (3.5-5.1); Sodium 143 mmol/L (137-145); Total Bilirubin 1.5 mg/dL (0.2-1.3); Total Protein 8.5 g/dL (6.3-8.2)
[2024-09-11 23:49] VITALS: BP 150/93; PULSE 85
== END 2024-09-11 23:50 | disposition home or self-care (01) ==
LOC: EC 20:48
DX: E86.0 Dehydration (principal); R11.2 Nausea with vomiting, unspecified; Z85.841 Personal history of malignant neoplasm of brain
CPT/HCPCS: 36415; 93005; 80053; 83690; 85025; 81001; 99284; 96374; 96375 ×3; 96361; J1200; J2765; J2405; J1953

== ENCOUNTER 2024-10-10 10:05 | Emergency (ER) | payer BC ==
[2024-10-10 10:12] VITALS: TEMP 98.4
--- NOTE | 2024-10-10 11:00 | ED ---
General Adult HPI - General Source: patient, RN notes reviewed Mode of arrival: ambulatory Limitations: no limitations <Pretty Staley - Last Filed: 10/10/24 10:58> <Honey Lovell - Last Filed: 10/10/24 15:41> - General Chief complaint: GI Bleed Stated complaint: Blood in stool/abd pain Time Seen by Provider: 10/10/24 10:58 - History of Present Illness Initial comments: Quick note: 44-year-old male presented emergency department for evaluation of rectal bleeding. He notes that this been going on for 3 days. He notes bright red blood in the toilet. He reports generalized body pains. Denies any weakness or shortness of breath. (Pretty Staley) - Related Data Home Medications Medication Instructions Recorded Confirmed levETIRAcetam [Keppra] 2,000 mg PO Q12HR 12/23/23 12/23/23 Previous Rx's Medication Instructions Recorded Metoclopramide [Reglan] 10 mg PO ACHS #12 tab 01/17/24 Allergies Allergy/AdvReac Type Severity Reaction Status Date / Time No Known Allergies Allergy Verified 10/10/24 10:12 Review of Systems ROS Other: All systems not noted in ROS Statement are negative. <Pretty Staley - Last Filed: 10/10/24 10:58> ROS Other: All systems not noted in ROS Statement are negative. <Honey Lovell - Last Filed: 10/10/24 15:41> ROS Statement: Those systems with pertinent positive or pertinent negative responses have been documented in the HPI. 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, anxiety, panic attacks History of Any Multi-Drug Resistant Organisms: None Reported Past Surgical History: Orthopedic Surgery, Ventriculoperitoneal Shunt Additional Past Surgical History / Comment(s): bilateral hand surgeries, 5 brain surgeries Past Psychological History: No Psychological Hx Reported Smoking Status: Never smoker Past Alcohol Use History: Occasional Past Drug Use History: Marijuana <Pretty Staley - Last Filed: 10/10/24 10:58> General Exam Limitations: no limitations <Pretty Staley - Last Filed: 10/10/24 10:58> - General Exam Comments Initial Comments: Visual Physical Exam Vital signs reviewed General: Well-appearing, nontoxic, no acute distress. Head: Normocephalic, atraumatic Eyes: PERRLA, EOMI ENT: Airway patent Chest: Nonlabored breathing Skin: No visual rash, normal skin tone Neuro: Alert and oriented 3 Musculoskeletal: No gross abnormalities (Pretty Staley) Course Vital Signs 10/10/24 10/10/24 10/10/24 10:10 12:11 13:36 Temperature 98.4 F Pulse Rate 81 92 89 Respiratory 20 18 18 Rate Blood Pressure 164/99 143/96 155/90 O2 Sat by Pulse 99 99 98 Oximetry Medical Decision Making <Pretty Staley - Last Filed: 10/10/24 10:58> - Lab Data Result diagrams: 10/10/24 11:18 10/10/24 11:18 <Honey Lovell - Last Filed: 10/10/24 15:41> - Medical Decision Making Quick note preformed and electronically signed by Pretty Staley PA-C (Pretty Staley) Was pt. sent in by a medical professional or institution ([facility], STORE PERSON, urgent care, hospital, or [place] health care facility...) When possible be specific @ -[No] Did you speak to anyone other than the patient for history (EMS, parent, family, police, friend...)? What history was obtained from this source @ -[No] Did you review nursing and triage notes (agree or disagree)? Why? @ -[I reviewed and agree with nursing and triage notes] Were old charts reviewed (outside hosp., previous admission, EMS record, old EKG, old radiological studies, urgent care reports/EKG's, [place] health [facility] facility records)? Report findings @ -[No old charts were reviewed] Differential Diagnosis (chest pain, altered mental status, abdominal pain women, abdominal pain men, vaginal bleeding, weakness, fever, dyspnea, syncope, headache, dizziness, GI bleed, back pain, seizure, CVA, palpatations, mental health, musculoskeletal)? @ -[not applicable] EKG interpreted by me (3pts min.). @ -Yes and demonstrates sinus rhythm with a rate of 86. OK interval 201. QRS 102. QTc of 393. No acute ST segment elevations or depressions X-rays interpreted by me (1pt min.). @ -[None done] CT interpreted by me (1pt min.). @ -[None done] U/S interpreted by me (1pt. min.). @ -[None done] What testing was considered but not performed or refused? (CT, X-rays, U/S, labs)? Why? @ -[None] What meds were considered but not given or refused? Why? @ -[None] Did you discuss the management of the patient with other professionals (pr ofessionals i.e. , PA, STORE PERSON, lab, RT, psych nurse, social and political studies professor, manager nursing home, teacher, homicide squad commanding officer, child welfare caseworker)? Give summary @ -[No] Was smoking cessation discussed for >3mins.? @ -[No] Was critical care preformed (if so, how long)? @ -[No] Were there social determinants of health that impacted care today? How? (Homelessness, low income, unemployed, alcoholism, drug addiction, transportation, low edu. Level, literacy, decrease access to med. care, skilled nursing, rehab)? @ -[No] Was there de-escalation of care discussed even if they declined (Discuss DNR or withdrawal of care, Hospice)? DNR status @ -[No] What co-morbidities impacted this encounter? (DM, HTN, Smoking, COPD, CAD, Cancer, CVA, ARF, Chemo, Hep., AIDS, mental health diagnosis, sleep apnea, morbid obesity)? @ -[None] Was patient admitted / discharged? Hospital course, mention meds given and route, prescriptions, significant lab abnormalities, going to OR and other pertinent info. @ -[hospital course] Undiagnosed new problem with uncertain prognosis? @ -[No] Drug Therapy requiring intensive monitoring for toxicity (Heparin, Nitro, Insulin, Cardizem)? @ -[No] Were any procedures done? @ -[No] Diagnosis/symptom? @ -[default] Acute, or Chronic, or Acute on Chronic? @ -[default] Uncomplicated (without systemic symptoms) or Complicated (systemic symptoms)? @ -[default] Side effects of treatment? @ -[No] Exacerbation, Progression, or Severe Exacerbation? @ -[No] Poses a threat to life or bodily function? How? (Chest pain, [place], [place], pneumonia, PE, COPD, DKA, ARF, appy, cholecystitis, CVA, Diverticulitis, Homicidal, Suicidal, threat to staff... and all critical care pts) @ -[No] (Honey Lovell) - Lab Data Lab Results 10/10/24 10/10/24 10/10/24 Range/Units 11:00 11:18 11:18 WBC 5.52 (4.50-10.00) 10*3/uL RBC 4.42 (4.40-5.60) 10*6/uL Hgb 14.7 D (13.0-17.0) g/dL Hct 41.0 (39.6-50.0) % MCV 92.8 (80.0-97.0) fL MCH 33.3 H (27.0-32.0) pg MCHC 35.9 (32.0-37.0) g/dL Plt Count 164 (140-440) 10*3/uL MPV 9.3 L (9.5-12.2) fL Immature Gran % (Auto) 0.4 % Neutrophils % 74.9 % Lymphocytes % 16.5 % Monocytes % 7.2 % Eosinophils % 0.5 % Basophils % 0.5 % Immature Gran # 0.02 (0.00-0.04) 10*3/uL Neutrophils # 4.13 (1.80-7.70) 10*3/uL Lymphocytes # 0.91 (0.90-5.00) 10*3/uL Monocytes # 0.40 (0.20-1.00) 10*3/uL Eosinophils # 0.03 L (0.04-0.35) 10*3/uL Basophils # 0.03 (0.00-0.10) 10*3/uL PT 11.6 (10.0-12.5) sec INR 1.1 (<1.2) APTT 24.6 (22.0-30.0) sec Sodium (137-145) mmol/L Potassium (3.5-5.1) mmol/L Chloride (98-107) mmol/L Carbon Dioxide (22-30) mmol/L Anion Gap mmol/L BUN (9-20) mg/dL Creatinine (0.66-1.25) mg/dL Est GFR (CKD-EPI)AfAm (>60 ml/min/1.73 sqM) Est GFR (CKD-EPI)NonAf (>60 ml/min/1.73 sqM) Glucose (74-99) mg/dL Calcium (8.4-10.2) mg/dL Total Bilirubin (0.2-1.3) mg/dL AST (17-59) U/L ALT (4-49) U/L Alkaline Phosphatase (38-126) U/L Total Protein (6.3-8.2) g/dL Albumin (3.5-5.0) g/dL Blood Type A Negative Blood Type Confirm Blood Type Recheck No Previous Record Bld Type Recheck Status CABO Indicated Antibody Screen NEGATIVE Spec Expiration Date 10/13/2024 - 229910/10/24 10/10/24 Range/Units 11:18 11:18 WBC (4.50-10.00) 10*3/uL RBC (4.40-5.60) 10*6/uL Hgb (13.0-17.0) g/dL Hct (39.6-50.0) % MCV (80.0-97.0) fL MCH (27.0-32.0) pg MCHC (32.0-37.0) g/dL Plt Count (140-440) 10*3/uL MPV (9.5-12.2) fL Immature Gran % (Auto) % Neutrophils % % Lymphocytes % % Monocytes % % Eosinophils % % Basophils % % Immature Gran # (0.00-0.04) 10*3/uL Neutrophils # (1.80-7.70) 10*3/uL Lymphocytes # (0.90-5.00) 10*3/uL Monocytes # (0.20-1.00) 10*3/uL Eosinophils # (0.04-0.35) 10*3/uL Basophils # (0.00-0.10) 10*3/uL PT (10.0-12.5) sec INR (<1.2) APTT (22.0-30.0) sec Sodium 136 L (137-145) mmol/L Potassium 4.1 (3.5-5.1) mmol/L Chloride 97 L (98-107) mmol/L Carbon Dioxide 29 (22-30) mmol/L Anion Gap 10 mmol/L BUN 10 (9-20) mg/dL Creatinine 0.74 (0.66-1.25) mg/dL Est GFR (CKD-EPI)AfAm >90 (>60 ml/min/1.73 sqM) Est GFR (CKD-EPI)NonAf >90 (>60 ml/min/1.73 sqM) Glucose 89 (74-99) mg/dL Calcium 9.9 (8.4-10.2) mg/dL Total Bilirubin 0.9 (0.2-1.3) mg/dL AST 100 H (17-59) U/L ALT 139 H (4-49) U/L Alkaline Phosphatase 70 (38-126) U/L Total Protein 7.1 (6.3-8.2) g/dL Albumin 4.5 (3.5-5.0) g/dL Blood Type Blood Type Confirm A Negative Blood Type Recheck Bld Type Recheck Status Antibody Screen Spec Expiration Date Disposition <Pretty Staley - Last Filed: 10/10/24 10:58> Is patient prescribed a controlled substance at d/c from ED?: No Time of Disposition: 13:14 <Honey Lovell - Last Filed: 10/10/24 15:41> Clinical Impression: Hematochezia Disposition: HOME SELF-CARE Condition: Stable Instructions (If sedation given, give patient instructions): Gastrointestinal Bleeding (ED) Additional Instructions: Your blood pressure and hemoglobin were normal today. The next step is to get a colonoscopy. I recommend Dr. Wing who is our GI doctor. Please call to make an appointment. Please discontinue any alcohol intake. Return to the emergency department for any new or worsening symptoms Referrals: Lorena Molina MD [Primary Care Provider] - 1-2 days Evelia Wing MD [STAFF PHYSICIAN] - 1-2 days
[2024-10-10 11:58] LABS: Basophils # (A) 0.03 10*3/uL (0.00-0.10); Basophils % (A) 0.5 %; Eosinophils # (A) 0.03 10*3/uL (0.04-0.35); Eosinophils % (A) 0.5 %; HCT 41.0 % (39.6-50.0); Lymphocytes # (A) 0.91 10*3/uL (0.90-5.00); Lymphocytes % (A) 16.5 %; MCH 33.3 pg (27.0-32.0); MCHC 35.9 g/dL (32.0-37.0); MCV 92.8 fL (80.0-97.0); Monocytes # (A) 0.40 10*3/uL (0.20-1.00); Monocytes % (A) 7.2 %; Neutrophils # (A) 4.13 10*3/uL (1.80-7.70); Neutrophils % (A) 74.9 %; Platelet Count 164 10*3/uL (140-440); RBC 4.42 10*6/uL (4.40-5.60); RDW 11.9 % (11.5-14.5); WBC 5.52 10*3/uL (4.50-10.00)
[2024-10-10 12:07] LABS: INR 1.1 (<1.2); Partial Thromboplastin Time 24.6 sec (22.0-30.0); Prothrombin Time 11.6 sec (10.0-12.5)
[2024-10-10 12:12] VITALS: RESP 18
[2024-10-10 12:17] LABS: ALT 139 U/L (4-49); AST 100 U/L (17-59); African American GFR (CKD) >90 (>60 ml/min/1.73 sqM); Albumin 4.5 g/dL (3.5-5.0); Alkaline Phosphatase 70 U/L (38-126); Anion Gap 10 mmol/L; Blood Urea Nitrogen 10 mg/dL (9-20); Calcium 9.9 mg/dL (8.4-10.2); Carbon Dioxide 29 mmol/L (22-30); Chloride 97 mmol/L (98-107); Glucose 89 mg/dL (74-99); Non-African American GFR(CKD) >90 (>60 ml/min/1.73 sqM); Potassium 4.1 mmol/L (3.5-5.1); Sodium 136 mmol/L (137-145); Total Protein 7.1 g/dL (6.3-8.2)
[2024-10-10 12:22] LABS: HGB 14.7 g/dL (13.0-17.0)
[2024-10-10 13:37] VITALS: BP 155/90; PULSE 89
== END 2024-10-10 13:37 | disposition home or self-care (01) ==
LOC: EC 10:05
DX: K92.1 Melena (principal)
CPT/HCPCS: 36415; 80053; 85025; 85610; 85730; 86850; 86900; 86901; 93005; 99285